=== PATIENT | male | born 1980 | race Caucasian/White ===

== ENCOUNTER 2019-02-22 15:39 | Inpatient (IN) | payer MEDICAID ==
[~2019-02-22] VITALS: Ht 172.7 cm; Wt 59.0 kg
--- NOTE | 2019-02-22 15:50 | NUR ---
PT UP SELF WITH STEADY GAIT TO RR.
[2019-02-22] MEDS ORDERED: SODIUM CHLORIDE 0.9% 1,000 ML IV ONE (15:59)
--- NOTE | 2019-02-22 15:59 | NUR ---
PT TO ED FOR RIGHT SIDED ABD PAIN X1 WEEK, WORSE AFTER DRINKING A BEER TODAY. PT REPORTS NAUSEA. DENIES V/D/FEVER. PT CONNECTED TO MONITORS. VSS. DR. VINSON TO BS FOR ASSESSMENT. AWAITING ORDERS.
[2019-02-22] MEDS ORDERED: SODIUM CHLORIDE FLUSH 10ML SYR IVF ONE (16:00)
[2019-02-22] MEDS ORDERED: SODIUM CHLORIDE 0.9% 1,000ML IVBOLUS ONE (16:00)
[2019-02-22] MEDS ORDERED: ONDANSETRON 2MG/ML, 2ML IVPush ONE (16:00)
[2019-02-22] MEDS ORDERED: HYDROmorphone 1 MG/ML, 1ML VIAL ONE (16:09)
[2019-02-22] MEDS ORDERED: ONDANSETRON 2MG/ML, 2ML ONE (16:09)
[2019-02-22] MEDS: HYDROmorphone 2 MG/ML, 1ML IVPush PRN ×4 (16:11→22:49)
--- NOTE | 2019-02-22 16:13 | NUR ---
IV ESTABLISHED AND LABS DRAWN. PT MEDICATED PER JUN. VSS. NO NEEDS EXPRESSED. PT TO XR AT THIS TIME. AWAITING RESUTLS.
[2019-02-22 16:15] LABS: BASOPHILS # (AUTO) 0.07 x10^3/uL (0-0.1); BASOPHILS % (AUTO) 1 % (0-1); EOSINOPHILS # (AUTO) 0.17 x10^3/uL (0-0.4); EOSINOPHILS % (AUTO) 2 % (1-7); LYMPHOCYTES # (AUTO) 2.48 x10^3/uL (1-3.4); LYMPHOCYTES % (AUTO) 24 % (22-44); MD NO; MEAN CORPUSCULAR HEMOGLOBIN 32.9 pg (27.5-34.5); MEAN CORPUSCULAR HGB CONC 34.6 g/dL (33.2-36.2); MEAN PLATELET VOLUME 7.3 fL (7.4-10.4); MONOCYTES % (AUTO) 13 % (2-9); NEUTROPHILS # (AUTO) 6.29 x10^3/uL (1.8-6.8); NEUTROPHILS % (AUTO) 61 % (42-75); PLATELET COUNT 360 x10^3/uL (130-400); RED BLOOD COUNT 4.42 x10^6/uL (4.38-5.82)
[2019-02-22 16:25] LABS: ALANINE AMINOTRANSFERASE 111 U/L (12-78); ALBUMIN 3.8 g/dL (3.4-5.0); ANION GAP 12 mmol/L (5-15); CALCIUM 8.9 mg/dL (8.5-10.1); CHLORIDE 104 mmol/L (98-107); CREATININE 0.86 mg/dL (0.7-1.3)
[2019-02-22 16:28] LABS: ALKALINE PHOSPHATASE 796 U/L (45-117); BILIRUBIN,TOTAL 1.6 mg/dL (0.2-1.0); TOTAL PROTEIN 7.3 g/dL (6.4-8.2)
[2019-02-22 16:44] LABS: CULTURE INDICATED? YES; MICROSCOPIC INDICATED
--- NOTE | 2019-02-22 17:06 | NUR ---
TASK RN: US AT BEDSIDE. BP/SPO2 MONITOR IN PLACE
--- NOTE | 2019-02-22 17:12 | NUR ---
FLOAT RN: US IN ROOM. WILL CONTINUE TO MONITOR WHILE PRIMARY RN IS ON BREAK.
--- NOTE | 2019-02-22 17:46 | NUR ---
ZOFIA RN: DR VINSON HAS UPDATED PATIENT. PAIENT TO BE AN ADMIT.
--- NOTE | 2019-02-22 18:05 | NUR ---
REPORT GIVEN TO AKIL PINEDA
--- NOTE | 2019-02-22 18:11 | NUR ---
PT RESTING IN ROOM. VSS. IVF BOLUS COMPLETE. MAINTENANCE IVF STARTED. NO NEEDS EXPRESSED. PLAN TO ADMIT. AWAITING ROOM ASSIGNMENT.
[2019-02-22] MEDS ORDERED: SODIUM CHLORIDE FLUSH 10ML SYR IVF PRN (18:30)
[2019-02-22] MEDS ORDERED: BISACODYL 10 MG SUPP PR PRN (19:00)
[2019-02-22] MEDS: HEPARIN 5,000 UNITS/ML, 1ML SQ SCH ×2 (19:30→19:32)
[2019-02-22] MEDS: NICOTINE 21 MG/24 HR PATCH.TD24 TD SCH (19:32)
[2019-02-22] MEDS: LACTATED RINGERS 1,000 ML IV SCH (19:32)
[2019-02-22 21:49] VITALS: BP 150/83
[2019-02-22] MEDS: ONDANSETRON 2MG/ML, 2ML IVPush PRN (22:54)
[2019-02-23] MEDS: LACTATED RINGERS 1,000 ML IV SCH ×5 (00:55→20:08)
[2019-02-23 01:07] VITALS: BP 108/66
[2019-02-23] MEDS ORDERED: PROMETHAZINE 25 MG/ML, 1ML ONE (02:33)
[2019-02-23] MEDS: PROMETHAZINE 25 MG/ML, 1ML IM PRN (02:38)
[2019-02-23] MEDS: HEPARIN 5,000 UNITS/ML, 1ML SQ SCH ×3 (02:39→19:30)
[2019-02-23] MEDS: HYDROmorphone 2 MG/ML, 1ML IVPush PRN ×7 (03:02→23:29)
[2019-02-23 04:54] LABS: BASOPHILS # (AUTO) 0.07 x10^3/uL (0-0.1); BASOPHILS % (AUTO) 1 % (0-1); EOSINOPHILS # (AUTO) 0.39 x10^3/uL (0-0.4); EOSINOPHILS % (AUTO) 6 % (1-7); LYMPHOCYTES # (AUTO) 2.87 x10^3/uL (1-3.4); LYMPHOCYTES % (AUTO) 42 % (22-44); MD NO; MEAN CORPUSCULAR HEMOGLOBIN 32.4 pg (27.5-34.5); MEAN CORPUSCULAR HGB CONC 33.8 g/dL (33.2-36.2); MEAN CORPUSCULAR VOLUME 96.1 fL (81-97); MEAN PLATELET VOLUME 7.5 fL (7.4-10.4); MONOCYTES # (AUTO) 0.81 x10^3/uL (0.2-0.8); MONOCYTES % (AUTO) 12 % (2-9); NEUTROPHILS # (AUTO) 2.69 x10^3/uL (1.8-6.8); NEUTROPHILS % (AUTO) 39 % (42-75); PLATELET COUNT 278 x10^3/uL (130-400); RED BLOOD COUNT 3.77 x10^6/uL (4.38-5.82); RED CELL DISTRIBUTION WIDTH 14.3 % (9.4-14.8)
[2019-02-23 05:04] LABS: CHLORIDE 109 mmol/L (98-107)
[2019-02-23 05:12] LABS: ALANINE AMINOTRANSFERASE 87 U/L (12-78); ALKALINE PHOSPHATASE 590 U/L (45-117); ANION GAP 4 mmol/L (5-15); CALCIUM 8.1 mg/dL (8.5-10.1); CREATININE 0.81 mg/dL (0.7-1.3); TOTAL PROTEIN 5.8 g/dL (6.4-8.2)
[2019-02-23 08:41] VITALS: BP 105/64
[2019-02-23 13:27] VITALS: BP 106/67
[2019-02-23 19:40] VITALS: BP 131/82
[2019-02-23] MEDS: NICOTINE 21 MG/24 HR PATCH.TD24 TD SCH (20:08)
[2019-02-23] MEDS: ONDANSETRON 2MG/ML, 2ML IVPush PRN (21:33)
[2019-02-24 00:49] VITALS: BP 125/78
[2019-02-24] MEDS: PROMETHAZINE 25 MG/ML, 1ML IM PRN (00:55)
[2019-02-24] MEDS: LACTATED RINGERS 1,000 ML IV SCH ×2 (00:56→05:50)
[2019-02-24] MEDS: HYDROmorphone 2 MG/ML, 1ML IVPush PRN (03:06)
[2019-02-24] MEDS: HEPARIN 5,000 UNITS/ML, 1ML SQ SCH ×3 (03:30→19:30)
[2019-02-24 05:27] LABS: BASOPHILS # (AUTO) 0.08 x10^3/uL (0-0.1); BASOPHILS % (AUTO) 1 % (0-1); EOSINOPHILS # (AUTO) 0.43 x10^3/uL (0-0.4); EOSINOPHILS % (AUTO) 7 % (1-7); LYMPHOCYTES # (AUTO) 2.67 x10^3/uL (1-3.4); LYMPHOCYTES % (AUTO) 40 % (22-44); MD NO; MEAN CORPUSCULAR HEMOGLOBIN 32.6 pg (27.5-34.5); MEAN CORPUSCULAR HGB CONC 33.8 g/dL (33.2-36.2); MEAN CORPUSCULAR VOLUME 96.4 fL (81-97); MEAN PLATELET VOLUME 7.3 fL (7.4-10.4); MONOCYTES # (AUTO) 0.83 x10^3/uL (0.2-0.8); MONOCYTES % (AUTO) 13 % (2-9); NEUTROPHILS # (AUTO) 2.64 x10^3/uL (1.8-6.8); NEUTROPHILS % (AUTO) 40 % (42-75); PLATELET COUNT 275 x10^3/uL (130-400); RED BLOOD COUNT 3.82 x10^6/uL (4.38-5.82); RED CELL DISTRIBUTION WIDTH 13.8 % (9.4-14.8)
[2019-02-24 05:38] LABS: ALBUMIN 2.9 g/dL (3.4-5.0); ANION GAP 4 mmol/L (5-15); CALCIUM 8.1 mg/dL (8.5-10.1); CHLORIDE 107 mmol/L (98-107)
[2019-02-24 05:41] LABS: ALANINE AMINOTRANSFERASE 63 U/L (12-78); ALKALINE PHOSPHATASE 463 U/L (45-117); BILIRUBIN,TOTAL 0.7 mg/dL (0.2-1.0); CREATININE 0.77 mg/dL (0.7-1.3); TOTAL PROTEIN 5.6 g/dL (6.4-8.2)
[2019-02-24] MEDS: OXYcodone/APAP 10/325MG TABLET PO PRN ×4 (07:48→21:12)
[2019-02-24 08:07] VITALS: BP 115/70
[2019-02-24] MEDS: ONDANSETRON 2MG/ML, 2ML IVPush PRN (08:18)
[2019-02-24 13:09] VITALS: BP 112/69
[2019-02-24 19:12] VITALS: BP 115/77
[2019-02-24] MEDS: NICOTINE 21 MG/24 HR PATCH.TD24 TD SCH (21:09)
[2019-02-25 01:46] VITALS: BP 125/79
[2019-02-25] MEDS: ONDANSETRON 2MG/ML, 2ML IVPush PRN (01:46)
[2019-02-25] MEDS: OXYcodone/APAP 10/325MG TABLET PO PRN ×4 (01:47→20:49)
[2019-02-25] MEDS: HEPARIN 5,000 UNITS/ML, 1ML SQ SCH ×3 (03:00→19:53)
[2019-02-25 05:16] LABS: BASOPHILS # (AUTO) 0.06 x10^3/uL (0-0.1); BASOPHILS % (AUTO) 1 % (0-1); EOSINOPHILS # (AUTO) 0.41 x10^3/uL (0-0.4); EOSINOPHILS % (AUTO) 6 % (1-7); LYMPHOCYTES # (AUTO) 2.61 x10^3/uL (1-3.4); LYMPHOCYTES % (AUTO) 36 % (22-44); MD NO; MEAN CORPUSCULAR HEMOGLOBIN 32.4 pg (27.5-34.5); MEAN CORPUSCULAR HGB CONC 33.4 g/dL (33.2-36.2); MEAN CORPUSCULAR VOLUME 96.8 fL (81-97); MEAN PLATELET VOLUME 7.4 fL (7.4-10.4); MONOCYTES % (AUTO) 12 % (2-9); NEUTROPHILS # (AUTO) 3.29 x10^3/uL (1.8-6.8); NEUTROPHILS % (AUTO) 45 % (42-75); PLATELET COUNT 260 x10^3/uL (130-400); RED BLOOD COUNT 3.86 x10^6/uL (4.38-5.82); RED CELL DISTRIBUTION WIDTH 14.1 % (9.4-14.8)
[2019-02-25 05:26] LABS: ALBUMIN 2.8 g/dL (3.4-5.0); ANION GAP 5 mmol/L (5-15); CALCIUM 7.7 mg/dL (8.5-10.1); CHLORIDE 109 mmol/L (98-107)
[2019-02-25 05:28] LABS: ALANINE AMINOTRANSFERASE 58 U/L (12-78); ALKALINE PHOSPHATASE 464 U/L (45-117); BILIRUBIN,TOTAL 0.7 mg/dL (0.2-1.0); CREATININE 0.88 mg/dL (0.7-1.3); TOTAL PROTEIN 5.7 g/dL (6.4-8.2)
[2019-02-25 06:40] VITALS: BP 132/78
[2019-02-25 13:26] VITALS: BP 125/76
[2019-02-25] MEDS ORDERED: ONDANSETRON 2MG/ML, 2ML IV PRN (14:00)
[2019-02-25] MEDS ORDERED: LABETALOL 5MG/ML, 20ML IV PRN (14:00)
[2019-02-25] MEDS ORDERED: PROMETHAZINE 25 MG/ML, 1ML IV PRN (14:00)
[2019-02-25] MEDS ORDERED: EPHEDRINE 50 MG/ML, 1ML IVPush PRN (14:00)
[2019-02-25] MEDS ORDERED: HYDROcodone/APAP 7.5-325MG/15ML UDC PO PRN (14:00)
[2019-02-25] MEDS ORDERED: hydrALAzine 20 MG/ML, 1ML IV PRN (14:00)
[2019-02-25] MEDS ORDERED: MEPERIDINE/PF 25MG/ML,1ML IVPush PRN (14:00)
[2019-02-25] MEDS ORDERED: ACETAMINOPHEN 325 MG TABLET PO PRN (14:00)
[2019-02-25] MEDS ORDERED: MIDAZOLAM 1 MG/ML, 2ML ONE (14:26)
[2019-02-25] MEDS ORDERED: FENTANYL PF 100 MCG/2ML ONE ×2 (14:26→16:11)
[2019-02-25] MEDS ORDERED: PROPOFOL 10 MG/ML, 20ML ONE (14:35)
[2019-02-25] MEDS ORDERED: SUCCINYLCHOLINE 20 MG/ML, 10ML ONE (14:35)
[2019-02-25] MEDS ORDERED: DEXAMETHASONE 4 MG/ML, 1ML ONE ×2 (14:43)
[2019-02-25] MEDS ORDERED: KETOROLAC 30 MG/1 ML ONE (14:45)
[2019-02-25] MEDS ORDERED: PIPERACILLIN/TAZO/PMX 3.375GM 50 ML ONE (14:47)
[2019-02-25] MEDS ORDERED: ONDANSETRON 2MG/ML, 2ML ONE (14:58)
[2019-02-25] MEDS ORDERED: HYDROmorphone 1 MG/ML, 1ML VIAL ONE ×3 (15:19→16:11)
[2019-02-25] MEDS: HYDROmorphone 2 MG/ML, 1ML IVPush PRN ×5 (15:25→16:25)
[2019-02-25] MEDS ORDERED: MEPERIDINE/PF 25MG/ML,1ML ONE (16:04)
[2019-02-25] MEDS: FENTANYL PF 100 MCG/2ML IV PRN ×2 (16:12→16:21)
[2019-02-25 16:58] VITALS: BP 118/68
[2019-02-25 18:35] VITALS: BP 120/82
[2019-02-25] MEDS: NICOTINE 21 MG/24 HR PATCH.TD24 TD SCH (19:53)
[2019-02-25] MEDS: PIPERACILLIN/TAZO/PMX 4.5GM 100 ML IV SCH (22:41)
[2019-02-26 01:30] VITALS: BP 118/76
[2019-02-26] MEDS: OXYcodone/APAP 10/325MG TABLET PO PRN ×5 (01:30→19:56)
[2019-02-26] MEDS: HEPARIN 5,000 UNITS/ML, 1ML SQ SCH (03:41)
[2019-02-26] MEDS: PIPERACILLIN/TAZO/PMX 4.5GM 100 ML IV SCH ×3 (06:13→22:41)
[2019-02-26 07:01] VITALS: BP 118/82
[2019-02-26] MEDS: ONDANSETRON 2MG/ML, 2ML IVPush PRN (08:24)
[2019-02-26 13:38] VITALS: BP 118/73
[2019-02-26 19:33] VITALS: BP 121/72
[2019-02-26] MEDS: NICOTINE 21 MG/24 HR PATCH.TD24 TD SCH (19:55)
[2019-02-27] MEDS: OXYcodone/APAP 10/325MG TABLET PO PRN ×4 (00:19→17:45)
[2019-02-27 01:21] VITALS: BP 114/71
[2019-02-27 05:41] LABS: BASOPHILS # (AUTO) 0.06 x10^3/uL (0-0.1); BASOPHILS % (AUTO) 1 % (0-1); EOSINOPHILS # (AUTO) 0.29 x10^3/uL (0-0.4); EOSINOPHILS % (AUTO) 3 % (1-7); LYMPHOCYTES # (AUTO) 3.06 x10^3/uL (1-3.4); LYMPHOCYTES % (AUTO) 30 % (22-44); MD NO; MEAN CORPUSCULAR HEMOGLOBIN 32.6 pg (27.5-34.5); MEAN CORPUSCULAR HGB CONC 33.5 g/dL (33.2-36.2); MEAN CORPUSCULAR VOLUME 97.4 fL (81-97); MEAN PLATELET VOLUME 7.3 fL (7.4-10.4); MONOCYTES # (AUTO) 0.89 x10^3/uL (0.2-0.8); MONOCYTES % (AUTO) 9 % (2-9); NEUTROPHILS # (AUTO) 5.78 x10^3/uL (1.8-6.8); NEUTROPHILS % (AUTO) 57 % (42-75); PLATELET COUNT 274 x10^3/uL (130-400); RED BLOOD COUNT 3.89 x10^6/uL (4.38-5.82); RED CELL DISTRIBUTION WIDTH 13.9 % (9.4-14.8)
[2019-02-27 05:54] LABS: ALBUMIN 2.8 g/dL (3.4-5.0); ANION GAP 4 mmol/L (5-15); CALCIUM 8.1 mg/dL (8.5-10.1); CHLORIDE 108 mmol/L (98-107)
[2019-02-27 06:00] LABS: ALANINE AMINOTRANSFERASE 35 U/L (12-78); ALKALINE PHOSPHATASE 309 U/L (45-117); BILIRUBIN,TOTAL 0.4 mg/dL (0.2-1.0); CREATININE 0.97 mg/dL (0.7-1.3); TOTAL PROTEIN 5.7 g/dL (6.4-8.2)
[2019-02-27] MEDS: PIPERACILLIN/TAZO/PMX 4.5GM 100 ML IV SCH ×2 (06:25→15:17)
[2019-02-27 07:55] VITALS: BP 124/74
[2019-02-27] MEDS: ONDANSETRON 2MG/ML, 2ML IVPush PRN (12:59)
[2019-02-27 13:05] VITALS: BP 126/85
[2019-02-27] MEDS: metroNIDAZOLE 500 MG TABLET PO SCH ×2 (17:44→20:27)
[2019-02-27] MEDS: PROMETHAZINE 25 MG/ML, 1ML IM PRN (17:44)
[2019-02-27] MEDS: PANTOPRAZOLE 20MG TABLET PO SCH (17:44)
[2019-02-27] MEDS: MAALOX/HYOSCYAMINE/LIDOCAINE 45 ML BTL PO PRN (17:45)
[2019-02-27 19:31] VITALS: BP 116/75
[2019-02-27] MEDS: NICOTINE 21 MG/24 HR PATCH.TD24 TD SCH (20:26)
[2019-02-27] MEDS: CEFDINIR 300 MG CAPSULE PO SCH (20:27)
[2019-02-28 00:19] VITALS: BP 111/69
[2019-02-28] MEDS: OXYcodone/APAP 10/325MG TABLET PO PRN ×2 (03:42→10:54)
[2019-02-28] MEDS: MAALOX/HYOSCYAMINE/LIDOCAINE 45 ML BTL PO PRN (03:52)
[2019-02-28] MEDS: PANTOPRAZOLE 20MG TABLET PO SCH ×2 (05:49→16:31)
[2019-02-28 06:05] LABS: BASOPHILS # (AUTO) 0.03 x10^3/uL (0-0.1); BASOPHILS % (AUTO) 0 % (0-1); EOSINOPHILS # (AUTO) 0.37 x10^3/uL (0-0.4); EOSINOPHILS % (AUTO) 4 % (1-7); LYMPHOCYTES # (AUTO) 2.01 x10^3/uL (1-3.4); LYMPHOCYTES % (AUTO) 20 % (22-44); MD NO; MEAN CORPUSCULAR HEMOGLOBIN 32.4 pg (27.5-34.5); MEAN CORPUSCULAR HGB CONC 33.3 g/dL (33.2-36.2); MEAN CORPUSCULAR VOLUME 97.4 fL (81-97); MEAN PLATELET VOLUME 7.7 fL (7.4-10.4); MONOCYTES # (AUTO) 0.98 x10^3/uL (0.2-0.8); MONOCYTES % (AUTO) 10 % (2-9); NEUTROPHILS # (AUTO) 6.72 x10^3/uL (1.8-6.8); NEUTROPHILS % (AUTO) 67 % (42-75); PLATELET COUNT 306 x10^3/uL (130-400); RED BLOOD COUNT 3.98 x10^6/uL (4.38-5.82); RED CELL DISTRIBUTION WIDTH 13.9 % (9.4-14.8)
[2019-02-28 06:08] LABS: CHLORIDE 108 mmol/L (98-107)
[2019-02-28 06:16] LABS: ALANINE AMINOTRANSFERASE 31 U/L (12-78); ALBUMIN 2.9 g/dL (3.4-5.0); ALKALINE PHOSPHATASE 289 U/L (45-117); ANION GAP 7 mmol/L (5-15); BILIRUBIN,TOTAL 0.4 mg/dL (0.2-1.0); CALCIUM 8.1 mg/dL (8.5-10.1); TOTAL PROTEIN 6.4 g/dL (6.4-8.2)
[2019-02-28 06:52] VITALS: BP 114/69
[2019-02-28] MEDS: CEFDINIR 300 MG CAPSULE PO SCH (08:37)
[2019-02-28] MEDS: metroNIDAZOLE 500 MG TABLET PO SCH ×2 (08:37→16:31)
[2019-02-28 13:20] VITALS: BP 107/71
[2019-02-28] MEDS: ONDANSETRON 2MG/ML, 2ML IVPush PRN (13:38)
[2019-02-28] MEDS ORDERED: ONDA4TAB13 SL (14:55)
[2019-02-28] MEDS ORDERED: TRAM50TA2 PO (14:55)
[2019-02-28] MEDS ORDERED: NICO-487 TD (14:55)
[2019-02-28] MEDS ORDERED: PANT20TA3 PO (14:55)
[2019-02-28] MEDS ORDERED: CEFD300C37 PO (14:55)
[2019-02-28] MEDS ORDERED: METR500T PO (14:55)
[2019-02-28] MEDS ORDERED: Maalox/Hyoscyamine/Lidocaine PO (14:56)
== END 2019-02-28 17:00 | disposition home or self-care (01) | DRG 439 ==
LOC: ED 17:59 → EDIP 18:01 → 3N 19:09 → DCLOUNGE 02-28 16:36
PROVIDERS: ADMIT Internal Medicine; ATTEND Internal Medicine
PROC: 0DB68ZX Excision of Stomach, Via Natural or Artificial Opening Endoscopic, Diagnostic (ICD-10-PCS; 2019-02-25)
PROC: 0F9G8ZZ Drainage of Pancreas, Via Natural or Artificial Opening Endoscopic (ICD-10-PCS; 2019-02-25)
PROC: BF47ZZZ Ultrasonography of Pancreas (ICD-10-PCS; 2019-02-25)
PROC: 0D9680Z Drainage of Stomach with Drainage Device, Via Natural or Artificial Opening Endoscopic (ICD-10-PCS; principal; 2019-02-25 14:30)
DX: K85.20 Alcohol induced acute pancreatitis without necrosis or infection (principal); K86.3 Pseudocyst of pancreas; F10.10 Alcohol abuse, uncomplicated; F32.9 Major depressive disorder, single episode, unspecified; F41.9 Anxiety disorder, unspecified; G89.29 Other chronic pain; K70.10 Alcoholic hepatitis without ascites; K83.8 Other specified diseases of biliary tract; K86.0 Alcohol-induced chronic pancreatitis; Z72.0 Tobacco use
CPT/HCPCS: 36415; 74021; 74022; 74181; 76700; 80053; 80074; 81001; 83690; 83735; 84100; 85025; 87086; 88305; 96361; 96374; G0378; J1100; J1170; J1644; J1885; J2250; J2405; J2543; J2550; J2704; J3010; C1874; J0330; J2175; J7030; J7120

== ENCOUNTER 2019-03-29 07:48 | Inpatient (IN) | payer MEDICAID ==
[~2019-03-29] VITALS: Ht 175.3 cm; Wt 59.2 kg
[~2019-03-29 07:48] MED LIST: CEFD300C37 PO; METR500T PO; Maalox/Hyoscyamine/Lidocaine PO; NICO-487 TD; ONDA4TAB13 SL; PANT20TA3 PO; TRAM50TA2 PO
[2019-03-29] MEDS ORDERED: HYDROmorphone 2 MG/ML, 1ML ONE ×2 (08:23→10:10)
[2019-03-29] MEDS: HYDROmorphone 2 MG/ML, 1ML IVPush PRN ×2 (08:24→10:13)
[2019-03-29 08:39] LABS: BASOPHILS # (AUTO) 0.09 x10^3/uL (0-0.1); BASOPHILS % (AUTO) 1 % (0-1); EOSINOPHILS % (AUTO) 3 % (1-7); LYMPHOCYTES # (AUTO) 2.12 x10^3/uL (1-3.4); LYMPHOCYTES % (AUTO) 23 % (22-44); MD NO; MEAN CORPUSCULAR HGB CONC 34.7 g/dL (33.2-36.2); MEAN PLATELET VOLUME 6.6 fL (7.4-10.4); MONOCYTES # (AUTO) 0.77 x10^3/uL (0.2-0.8); MONOCYTES % (AUTO) 8 % (2-9); NEUTROPHILS # (AUTO) 5.97 x10^3/uL (1.8-6.8); NEUTROPHILS % (AUTO) 65 % (42-75); PLATELET COUNT 327 x10^3/uL (130-400); RED BLOOD COUNT 4.76 x10^6/uL (4.38-5.82); RED CELL DISTRIBUTION WIDTH 14.3 % (9.4-14.8)
[2019-03-29 08:46] LABS: ALBUMIN 3.7 g/dL (3.4-5.0); ANION GAP 11 mmol/L (5-15); CALCIUM 8.7 mg/dL (8.5-10.1); CHLORIDE 109 mmol/L (98-107); CREATININE 0.87 mg/dL (0.7-1.3)
[2019-03-29 08:50] LABS: ALANINE AMINOTRANSFERASE 23 U/L (12-78); ALKALINE PHOSPHATASE 88 U/L (45-117); BILIRUBIN,TOTAL 0.5 mg/dL (0.2-1.0); TOTAL PROTEIN 7.7 g/dL (6.4-8.2)
--- NOTE | 2019-03-29 09:24 | NUR ---
pt returned from CT in NAD awaiting CT read & dispo. MELA
[2019-03-29] MEDS ORDERED: OMNIPAQUE 350 MG/ML, 100ML BOTTLE ONE (09:31)
--- NOTE | 2019-03-29 09:52 | NUR ---
Pt to be admitted
--- NOTE | 2019-03-29 10:22 | NUR ---
Hospital bed ordered for pt
[2019-03-29] MEDS: SODIUM CHLORIDE 0.9% 1,000 ML IV SCH ×2 (10:56→19:36)
--- NOTE | 2019-03-29 10:59 | NUR ---
Pt in bed, NAD, awaiting medical room to be cleaned.
[2019-03-29] MEDS ORDERED: LORazepam 2 MG/ML, 1ML IVPush PRN (11:00)
[2019-03-29] MEDS ORDERED: MAGNESIUM SULFATE PMX 2GM/50ML 50 ML IV ONE (11:00)
[2019-03-29] MEDS ORDERED: HALOPERIDOL 5 MG/ML IM PRN (11:30)
[2019-03-29] MEDS ORDERED: ONDANSETRON 2MG/ML, 2ML ONE (11:53)
[2019-03-29] MEDS ORDERED: MAGNESIUM SULFATE PMX 2GM/50ML 50 ML ONE (11:54)
[2019-03-29] MEDS ORDERED: PANTOPRAZOLE 40 MG IV ONE (11:54)
[2019-03-29] MEDS ORDERED: MORPHINE SULFATE 4 MG/ML, 1ML ONE (11:54)
[2019-03-29] MEDS: ONDANSETRON 2MG/ML, 2ML IVPush PRN (12:06)
[2019-03-29] MEDS: PANTOPRAZOLE 40 MG IV IVPush SCH ×2 (12:07→21:17)
[2019-03-29] MEDS: morphine SULFATE 10 MG/ML, 1ML IVPush PRN ×4 (12:07→23:18)
--- NOTE | 2019-03-29 12:16 | NUR ---
Pt moved to hospital bed, given mouth swabs.
[2019-03-29] MEDS ORDERED: NICOTINE 21 MG/24 HR PATCH.TD24 ONE (12:37)
[2019-03-29] MEDS: NICOTINE 21 MG/24 HR PATCH.TD24 TD SCH (12:41)
[2019-03-29] MEDS ORDERED: LORazepam 2 MG/ML, 1ML ONE (12:48)
[2019-03-29 13:23] VITALS: BP 134/74
[2019-03-29 18:41] VITALS: BP 132/69
[2019-03-30 01:13] VITALS: BP 116/64
[2019-03-30] MEDS: SODIUM CHLORIDE 0.9% 1,000 ML IV SCH ×3 (03:23→18:56)
[2019-03-30] MEDS: morphine SULFATE 10 MG/ML, 1ML IVPush PRN ×2 (03:30→08:19)
[2019-03-30 05:14] LABS: CALCIUM 8.1 mg/dL (8.5-10.1); CHLORIDE 106 mmol/L (98-107)
[2019-03-30 05:18] LABS: ANION GAP 10 mmol/L (5-15); CREATININE 0.69 mg/dL (0.7-1.3)
[2019-03-30 05:20] LABS: BASOPHILS # (AUTO) 0.04 x10^3/uL (0-0.1); BASOPHILS % (AUTO) 1 % (0-1); EOSINOPHILS # (AUTO) 0.42 x10^3/uL (0-0.4); EOSINOPHILS % (AUTO) 7 % (1-7); LYMPHOCYTES # (AUTO) 1.68 x10^3/uL (1-3.4); LYMPHOCYTES % (AUTO) 28 % (22-44); MD NO; MEAN CORPUSCULAR HEMOGLOBIN 31.7 pg (27.5-34.5); MEAN CORPUSCULAR HGB CONC 34.1 g/dL (33.2-36.2); MEAN CORPUSCULAR VOLUME 92.9 fL (81-97); MONOCYTES # (AUTO) 0.61 x10^3/uL (0.2-0.8); MONOCYTES % (AUTO) 10 % (2-9); NEUTROPHILS # (AUTO) 3.31 x10^3/uL (1.8-6.8); NEUTROPHILS % (AUTO) 55 % (42-75); PLATELET COUNT 255 x10^3/uL (130-400); RED BLOOD COUNT 4.08 x10^6/uL (4.38-5.82); RED CELL DISTRIBUTION WIDTH 14.4 % (9.4-14.8)
[2019-03-30 06:16] VITALS: BP 110/70
[2019-03-30] MEDS: PANTOPRAZOLE 40 MG IV IVPush SCH ×2 (08:19→20:48)
[2019-03-30] MEDS: NICOTINE 21 MG/24 HR PATCH.TD24 TD SCH (08:20)
[2019-03-30] MEDS ORDERED: DIPHENHYDRAMINE 50 MG/ML, 1ML IVPush ONE (11:00)
[2019-03-30] MEDS ORDERED: LORazepam 0.5MG TABLET PO PRN (11:00)
[2019-03-30] MEDS ORDERED: ONDANSETRON ODT 4 MG PO PRN (11:00)
[2019-03-30] MEDS ORDERED: LORazepam 2 MG/ML, 1ML IV PRN (11:00)
[2019-03-30] MEDS ORDERED: LORazepam 1MG TABLET PO PRN (11:00)
[2019-03-30] MEDS ORDERED: DIPHENHYDRAMINE 25 MG CAPSULE PO PRN (11:00)
[2019-03-30] MEDS: HYDROcodone/APAP 5/325 TABLET PO PRN ×3 (11:36→22:22)
[2019-03-30 12:06] LABS: BILIRUBIN, DIRECT 0.2 mg/dL (0.1-0.2)
[2019-03-30 12:07] LABS: BILIRUBIN,INDIRECT 0.7 mg/dL (0.0-2.0); BILIRUBIN,TOTAL 0.9 mg/dL (0.2-1.0); TOTAL PROTEIN 6.5 g/dL (6.4-8.2)
[2019-03-30 13:05] VITALS: BP 109/65
[2019-03-30] MEDS: MAGNESIUM SULFATE 1 GM, FOLIC ACID 1 MG, THIAMINE 200 MG, MVI ADULT 10 ML in D5%-0.9% N... IV SCH (15:17)
[2019-03-30] MEDS: LORazepam 2 MG/ML, 1ML IV PRN ×2 (16:52→23:55)
[2019-03-30 19:47] VITALS: BP 110/66
[2019-03-31] MEDS: SODIUM CHLORIDE 0.9% 1,000 ML IV SCH ×3 (01:35→18:56)
[2019-03-31 01:36] VITALS: BP 125/79
[2019-03-31] MEDS: HYDROcodone/APAP 5/325 TABLET PO PRN ×3 (05:14→21:25)
[2019-03-31 07:34] VITALS: BP 122/71
[2019-03-31] MEDS: PANTOPRAZOLE 40 MG IV IVPush SCH ×2 (09:00→21:03)
[2019-03-31] MEDS: NICOTINE 21 MG/24 HR PATCH.TD24 TD SCH ×2 (11:00→21:25)
[2019-03-31 12:18] VITALS: BP 128/67
[2019-03-31] MEDS: ONDANSETRON 2MG/ML, 2ML IVPush PRN ×2 (13:18→21:03)
[2019-03-31] MEDS: LORazepam 2 MG/ML, 1ML IV PRN ×2 (13:19→22:24)
[2019-03-31] MEDS: MAGNESIUM SULFATE 1 GM, FOLIC ACID 1 MG, THIAMINE 200 MG, MVI ADULT 10 ML in D5%-0.9% N... IV SCH (18:35)
[2019-03-31 18:49] VITALS: BP 129/80
[2019-04-01 00:54] VITALS: BP 112/68
[2019-04-01] MEDS: SODIUM CHLORIDE 0.9% 1,000 ML IV SCH ×2 (02:56→05:07)
[2019-04-01] MEDS: HYDROcodone/APAP 5/325 TABLET PO PRN ×2 (03:31→08:50)
[2019-04-01 07:07] VITALS: BP 122/84
[2019-04-01] MEDS: ONDANSETRON 2MG/ML, 2ML IVPush PRN (08:49)
[2019-04-01] MEDS: PANTOPRAZOLE 40 MG IV IVPush SCH ×2 (08:50→20:02)
[2019-04-01] MEDS ORDERED: SODIUM CHLORIDE 0.9% 1,000 ML IV SCH (10:56)
[2019-04-01] MEDS ORDERED: METOCLOPRAMIDE 5 MG/ML, 2ML IVPush PRN (11:00)
[2019-04-01] MEDS: SIMETHICONE 80 MG CHEW TAB PO SCH ×3 (11:27→21:00)
[2019-04-01] MEDS: SENNA/DOCUSATE TABLET PO SCH (11:27)
[2019-04-01 11:29] LABS: BASOPHILS % (AUTO) 1 % (0-1); EOSINOPHILS # (AUTO) 0.36 x10^3/uL (0-0.4); EOSINOPHILS % (AUTO) 5 % (1-7); LYMPHOCYTES # (AUTO) 1.92 x10^3/uL (1-3.4); LYMPHOCYTES % (AUTO) 25 % (22-44); MD NO; MEAN CORPUSCULAR HEMOGLOBIN 31.7 pg (27.5-34.5); MEAN CORPUSCULAR HGB CONC 33.3 g/dL (33.2-36.2); MONOCYTES # (AUTO) 0.62 x10^3/uL (0.2-0.8); MONOCYTES % (AUTO) 8 % (2-9); NEUTROPHILS # (AUTO) 4.67 x10^3/uL (1.8-6.8); NEUTROPHILS % (AUTO) 61 % (42-75); PLATELET COUNT 312 x10^3/uL (130-400); RED BLOOD COUNT 4.51 x10^6/uL (4.38-5.82); RED CELL DISTRIBUTION WIDTH 14.5 % (9.4-14.8)
[2019-04-01 11:40] LABS: ALANINE AMINOTRANSFERASE 25 U/L (12-78); ALBUMIN 3.4 g/dL (3.4-5.0); ANION GAP 8 mmol/L (5-15); CALCIUM 8.7 mg/dL (8.5-10.1); CHLORIDE 106 mmol/L (98-107); CREATININE 0.83 mg/dL (0.7-1.3)
[2019-04-01 11:42] LABS: ALKALINE PHOSPHATASE 90 U/L (45-117); BILIRUBIN,TOTAL 0.5 mg/dL (0.2-1.0); TOTAL PROTEIN 7.2 g/dL (6.4-8.2)
[2019-04-01 12:51] LABS: HEMOGLOBIN A1C 5.7 % (4.2-6.3)
[2019-04-01 13:44] VITALS: BP 145/88
[2019-04-01] MEDS ORDERED: POTASSIUM PHOSPHATE 22 MEQ in SODIUM CHLORIDE 0.9% 250 ML IV ONE (14:30)
[2019-04-01] MEDS: HYDROmorphone 2 MG/ML, 1ML IVPush PRN ×2 (14:38→20:04)
[2019-04-01] MEDS: MAGNESIUM SULFATE 1 GM, FOLIC ACID 1 MG, THIAMINE 200 MG, MVI ADULT 10 ML in D5%-0.9% N... IV SCH (18:32)
[2019-04-01 19:13] VITALS: BP 109/69
[2019-04-01] MEDS: NICOTINE 21 MG/24 HR PATCH.TD24 TD SCH (20:02)
[2019-04-02] MEDS: HYDROmorphone 2 MG/ML, 1ML IVPush PRN ×4 (00:35→20:29)
[2019-04-02] MEDS: LORazepam 2 MG/ML, 1ML IV PRN (00:41)
[2019-04-02 00:58] VITALS: BP 110/54
[2019-04-02] MEDS: SODIUM CHLORIDE 0.9% 1,000 ML IV SCH ×3 (04:40→20:00)
[2019-04-02 05:30] LABS: ALANINE AMINOTRANSFERASE 22 U/L (12-78); ALBUMIN 3.5 g/dL (3.4-5.0); ANION GAP 7 mmol/L (5-15); CALCIUM 8.5 mg/dL (8.5-10.1); CHLORIDE 105 mmol/L (98-107)
[2019-04-02 05:33] LABS: ALKALINE PHOSPHATASE 88 U/L (45-117); BILIRUBIN,TOTAL 0.4 mg/dL (0.2-1.0); CREATININE 0.79 mg/dL (0.7-1.3); TOTAL PROTEIN 7.3 g/dL (6.4-8.2)
[2019-04-02] MEDS: SIMETHICONE 80 MG CHEW TAB PO SCH ×4 (06:00→20:29)
[2019-04-02 07:36] VITALS: BP 115/75
[2019-04-02] MEDS: SENNA/DOCUSATE TABLET PO SCH (07:59)
[2019-04-02] MEDS: PANTOPRAZOLE 40 MG IV IVPush SCH ×2 (07:59→20:28)
[2019-04-02] MEDS ORDERED: SODIUM CHLORIDE 0.9% 1,000 ML IV SCH (10:56)
[2019-04-02 13:06] VITALS: BP 115/74
[2019-04-02 19:34] VITALS: BP 127/72
[2019-04-02] MEDS: NICOTINE 21 MG/24 HR PATCH.TD24 TD SCH (23:13)
[2019-04-03 00:09] VITALS: BP 120/68
[2019-04-03] MEDS: LORazepam 2 MG/ML, 1ML IV PRN (00:24)
[2019-04-03] MEDS: HYDROmorphone 2 MG/ML, 1ML IVPush PRN ×3 (01:07→20:11)
[2019-04-03] MEDS: SODIUM CHLORIDE 0.9% 1,000 ML IV SCH ×3 (04:00→22:36)
[2019-04-03] MEDS: SIMETHICONE 80 MG CHEW TAB PO SCH ×4 (05:17→22:36)
[2019-04-03 07:21] VITALS: BP 124/81
[2019-04-03] MEDS: SENNA/DOCUSATE TABLET PO SCH (09:19)
[2019-04-03] MEDS: PANTOPRAZOLE 40 MG IV IVPush SCH ×2 (10:03→20:10)
[2019-04-03 12:35] VITALS: BP 116/72
[2019-04-03 19:54] VITALS: BP 120/74
[2019-04-03] MEDS: NICOTINE 21 MG/24 HR PATCH.TD24 TD SCH (22:36)
[2019-04-04 01:15] VITALS: BP 124/76
[2019-04-04] MEDS: HYDROmorphone 2 MG/ML, 1ML IVPush PRN (01:33)
[2019-04-04 05:44] LABS: BASOPHILS # (AUTO) 0.05 x10^3/uL (0-0.1); BASOPHILS % (AUTO) 1 % (0-1); EOSINOPHILS # (AUTO) 0.57 x10^3/uL (0-0.4); EOSINOPHILS % (AUTO) 6 % (1-7); LYMPHOCYTES # (AUTO) 2.74 x10^3/uL (1-3.4); LYMPHOCYTES % (AUTO) 30 % (22-44); MD NO; MEAN CORPUSCULAR HEMOGLOBIN 31.6 pg (27.5-34.5); MEAN CORPUSCULAR VOLUME 95.5 fL (81-97); MONOCYTES # (AUTO) 0.66 x10^3/uL (0.2-0.8); MONOCYTES % (AUTO) 7 % (2-9); NEUTROPHILS # (AUTO) 5.04 x10^3/uL (1.8-6.8); NEUTROPHILS % (AUTO) 56 % (42-75); PLATELET COUNT 323 x10^3/uL (130-400); RED BLOOD COUNT 4.39 x10^6/uL (4.38-5.82); RED CELL DISTRIBUTION WIDTH 14.6 % (9.4-14.8)
[2019-04-04 05:56] LABS: ALBUMIN 3.1 g/dL (3.4-5.0); ANION GAP 4 mmol/L (5-15); CALCIUM 8.8 mg/dL (8.5-10.1); CHLORIDE 110 mmol/L (98-107)
[2019-04-04 06:00] LABS: ALANINE AMINOTRANSFERASE 17 U/L (12-78); ALKALINE PHOSPHATASE 78 U/L (45-117); BILIRUBIN,TOTAL 0.4 mg/dL (0.2-1.0); TOTAL PROTEIN 6.6 g/dL (6.4-8.2)
[2019-04-04] MEDS: SODIUM CHLORIDE 0.9% 1,000 ML IV SCH ×2 (06:11→20:04)
[2019-04-04] MEDS: SIMETHICONE 80 MG CHEW TAB PO SCH ×4 (06:11→20:04)
[2019-04-04 07:30] VITALS: BP 108/68
[2019-04-04] MEDS: PANTOPRAZOLE 40 MG IV IVPush SCH (08:20)
[2019-04-04] MEDS: SENNA/DOCUSATE TABLET PO SCH (08:20)
[2019-04-04 12:45] VITALS: BP 118/78
[2019-04-04] MEDS: NICOTINE 21 MG/24 HR PATCH.TD24 TD SCH (17:43)
[2019-04-04 19:25] VITALS: BP 116/77
[2019-04-04] MEDS: ONDANSETRON 2MG/ML, 2ML IVPush PRN (19:47)
[2019-04-04] MEDS: PANTOPROZOLE 40MG TABLET PO SCH (20:04)
[2019-04-04] MEDS: HYDROcodone/APAP 5/325 TABLET PO PRN (22:27)
[2019-04-05 00:52] VITALS: BP 114/74
[2019-04-05] MEDS: SODIUM CHLORIDE 0.9% 1,000 ML IV SCH (05:03)
[2019-04-05] MEDS: SIMETHICONE 80 MG CHEW TAB PO SCH ×2 (05:03→11:29)
[2019-04-05 07:05] VITALS: BP 120/74
[2019-04-05] MEDS: SENNA/DOCUSATE TABLET PO SCH (11:29)
[2019-04-05] MEDS: PANTOPROZOLE 40MG TABLET PO SCH (11:29)
== END 2019-04-05 11:48 | disposition home or self-care (01) | DRG 439 ==
LOC: ED 09:42 → EDIP 09:43 → UNDOADMIN 10:47 → 3N 13:00
PROVIDERS: ADMIT Internal Medicine; ATTEND Internal Medicine
DX: K85.20 Alcohol induced acute pancreatitis without necrosis or infection (principal); E87.2 Acidosis; F10.239 Alcohol dependence with withdrawal, unspecified; F10.288 Alcohol dependence with other alcohol-induced disorder; K86.3 Pseudocyst of pancreas; B86 Scabies; E83.39 Other disorders of phosphorus metabolism; F10.229 Alcohol dependence with intoxication, unspecified; K29.50 Unspecified chronic gastritis without bleeding; K70.10 Alcoholic hepatitis without ascites; K76.0 Fatty (change of) liver, not elsewhere classified; K86.0 Alcohol-induced chronic pancreatitis; Z80.3 Family history of malignant neoplasm of breast; Z87.891 Personal history of nicotine dependence; Y90.9 Presence of alcohol in blood, level not specified
CPT/HCPCS: 36415; 74021; 96374; 99285; J7042; 74177; 80048; 80053; 80076; 80307; 83036; 83690; 83735; 84100; 85025; 93005; G0378; J1170; J2405; J3411; J3475; Q0162; Q9967; C9113; J1200; J2060; J2270; J2765; J7030; J7050; Q0163

== ENCOUNTER 2019-04-12 21:21 | Emergency (ER) | payer MEDICAID ==
[~2019-04-12] VITALS: Ht 175.3 cm; Wt 54.0 kg
[2019-04-12 21:57] LABS: MICROSCOPIC NOT IND
[2019-04-12] MEDS ORDERED: FAMOTIDINE 20 MG/2 ML IVPush ONE (22:00)
[2019-04-12] MEDS ORDERED: SODIUM CHLORIDE FLUSH 10ML SYR IVF ONE (22:00)
[2019-04-12] MEDS ORDERED: PROCHLORPERAZINE 5 MG/ML, 2ML IVPush ONE (22:00)
[2019-04-12] MEDS ORDERED: PROCHLORPERAZINE 5 MG/ML, 2ML ONE (22:00)
[2019-04-12] MEDS ORDERED: SODIUM CHLORIDE 0.9% 1,000ML IVBOLUS ONE (22:00)
[2019-04-12] MEDS ORDERED: FAMOTIDINE 20 MG/2 ML ONE (22:01)
[2019-04-12 22:09] LABS: CULTURE INDICATED? NO
[2019-04-12 22:24] LABS: BASOPHILS # (AUTO) 0.06 x10^3/uL (0-0.1); BASOPHILS % (AUTO) 1 % (0-1); EOSINOPHILS # (AUTO) 0.11 x10^3/uL (0-0.4); EOSINOPHILS % (AUTO) 1 % (1-7); LYMPHOCYTES % (AUTO) 30 % (22-44); MD NO; MEAN CORPUSCULAR HEMOGLOBIN 31.8 pg (27.5-34.5); MEAN CORPUSCULAR HGB CONC 33.9 g/dL (33.2-36.2); MEAN CORPUSCULAR VOLUME 93.8 fL (81-97); MEAN PLATELET VOLUME 6.4 fL (7.4-10.4); MONOCYTES # (AUTO) 0.64 x10^3/uL (0.2-0.8); MONOCYTES % (AUTO) 6 % (2-9); NEUTROPHILS # (AUTO) 7.04 x10^3/uL (1.8-6.8); NEUTROPHILS % (AUTO) 63 % (42-75); PLATELET COUNT 677 x10^3/uL (130-400); RED BLOOD COUNT 4.84 x10^6/uL (4.38-5.82); RED CELL DISTRIBUTION WIDTH 14.7 % (9.4-14.8)
[2019-04-12 22:37] LABS: ALANINE AMINOTRANSFERASE 20 U/L (12-78); ALBUMIN 3.6 g/dL (3.4-5.0); ANION GAP 8 mmol/L (5-15); CALCIUM 8.3 mg/dL (8.5-10.1); CHLORIDE 109 mmol/L (98-107); CREATININE 0.79 mg/dL (0.7-1.3)
[2019-04-12 22:39] LABS: ALKALINE PHOSPHATASE 82 U/L (45-117); BILIRUBIN,TOTAL 0.2 mg/dL (0.2-1.0); TOTAL PROTEIN 7.6 g/dL (6.4-8.2)
[2019-04-12 22:48] VITALS: BP 117/73
--- NOTE | 2019-04-12 23:04 | NUR ---
BIB [facility], ABD RUQ X 1 WEEK. HX PANCREATITIS. HAD A COUPLE OF DRINKS TONIGHT AND PAIN GOT SO BAD CALLED AMBULANCE. EXTREME PAIN WITH ABD PALPATION IN ALL QUADRANTS. 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 +N/V
[2019-04-13] MEDS ORDERED: SODIUM CHLORIDE 0.9% 1,000ML IVBOLUS ONE
== END 2019-04-13 00:51 | disposition home or self-care (01) ==
LOC: ED 23:03
DX: R10.13 Epigastric pain (principal); R11.2 Nausea with vomiting, unspecified; E86.0 Dehydration; F12.10 Cannabis abuse, uncomplicated; F17.200 Nicotine dependence, unspecified, uncomplicated; Z72.89 Other problems related to lifestyle
CPT/HCPCS: 36415; 80053; 80307; 81003; 83690; 83735; 85025; 96361; 96374; 96375; 99283; J0780; J3490; J7030

== ENCOUNTER 2019-04-14 12:27 | Emergency (ER) | payer MEDICAID ==
[~2019-04-14] VITALS: Ht 172.7 cm; Wt 57.0 kg
[2019-04-14 12:30] VITALS: BP 130/77
--- NOTE | 2019-04-14 14:17 | NUR ---
PURCHASING OFFICER: CALLED FOR ROOM, NO ANSWER
--- NOTE | 2019-04-14 14:18 | NUR ---
TITLE SUPERVISOR: PT SIGNED REQUEST FOR DISCHARGE FORM.
== END 2019-04-14 14:20 | disposition left against medical advice (07) ==
LOC: ED 14:02
DX: R10.9 Unspecified abdominal pain (principal); R11.2 Nausea with vomiting, unspecified; R19.7 Diarrhea, unspecified; Z53.21 Procedure and treatment not carried out due to patient leaving prior to being seen by health care provider

== ENCOUNTER 2019-04-14 19:13 | Inpatient (IN) | payer MEDICAID ==
[~2019-04-14] VITALS: Ht 175.3 cm; Wt 60.2 kg
[2019-04-14] MEDS ORDERED: ONDANSETRON 2MG/ML, 2ML IVPush ONE (20:00)
[2019-04-14] MEDS ORDERED: SODIUM CHLORIDE 0.9% 1,000ML IVBOLUS ONE ×2 (20:00→20:30)
[2019-04-14] MEDS ORDERED: MORPHINE SULFATE 4 MG/ML, 1ML IVPush PRN ×2 (20:00→20:30)
[2019-04-14] MEDS ORDERED: ONDANSETRON 2MG/ML, 2ML ONE (20:14)
[2019-04-14] MEDS ORDERED: MORPHINE SULFATE 4 MG/ML, 1ML ONE (20:15)
--- NOTE | 2019-04-14 20:21 | NUR ---
PT MEDICATED PER MAR FOR PAIN. PT RESTING COMFORTABLY IN [facility] AT THIS TIME WITH CALL LIGHT WITHIN REACH.
[2019-04-14] MEDS ORDERED: SODIUM CHLORIDE 0.9% 1,000 ML IV ONE (20:25)
[2019-04-14 20:26] LABS: BASOPHILS # (AUTO) 0.09 x10^3/uL (0-0.1); BASOPHILS % (AUTO) 1 % (0-1); EOSINOPHILS # (AUTO) 0.21 x10^3/uL (0-0.4); EOSINOPHILS % (AUTO) 2 % (1-7); LYMPHOCYTES # (AUTO) 2.63 x10^3/uL (1-3.4); LYMPHOCYTES % (AUTO) 28 % (22-44); MD NO; MEAN CORPUSCULAR HEMOGLOBIN 31.2 pg (27.5-34.5); MEAN CORPUSCULAR HGB CONC 33.2 g/dL (33.2-36.2); MEAN CORPUSCULAR VOLUME 94.1 fL (81-97); MEAN PLATELET VOLUME 6.6 fL (7.4-10.4); MONOCYTES # (AUTO) 0.61 x10^3/uL (0.2-0.8); MONOCYTES % (AUTO) 7 % (2-9); NEUTROPHILS # (AUTO) 5.79 x10^3/uL (1.8-6.8); NEUTROPHILS % (AUTO) 62 % (42-75); PLATELET COUNT 519 x10^3/uL (130-400); RED BLOOD COUNT 4.02 x10^6/uL (4.38-5.82); RED CELL DISTRIBUTION WIDTH 14.4 % (9.4-14.8)
[2019-04-14 20:27] LABS: ALANINE AMINOTRANSFERASE 20 U/L (12-78); ANION GAP 9 mmol/L (5-15); CALCIUM 8.1 mg/dL (8.5-10.1); CHLORIDE 110 mmol/L (98-107); CREATININE 0.62 mg/dL (0.7-1.3)
[2019-04-14 20:29] LABS: ALKALINE PHOSPHATASE 74 U/L (45-117); BILIRUBIN,TOTAL 0.7 mg/dL (0.2-1.0); TOTAL PROTEIN 6.3 g/dL (6.4-8.2)
[2019-04-14] MEDS ORDERED: ONDANSETRON 2MG/ML, 2ML IVPush PRN (20:30)
[2019-04-14] MEDS ORDERED: BISACODYL 10 MG SUPP PR PRN (21:00)
[2019-04-14] MEDS: HEPARIN 5,000 UNITS/ML, 1ML SQ SCH (21:00)
[2019-04-14] MEDS: NICOTINE 21 MG/24 HR PATCH.TD24 TD SCH (21:00)
[2019-04-14] MEDS ORDERED: LORazepam 2 MG/ML, 1ML IVPush PRN (21:00)
[2019-04-14] MEDS: LACTATED RINGERS 1,000 ML IV SCH (21:00)
[2019-04-14] MEDS ORDERED: NICOTINE 21 MG/24 HR PATCH.TD24 ONE (21:04)
[2019-04-14] MEDS ORDERED: HEPARIN 5,000 UNITS/ML, 1ML ONE (21:04)
--- NOTE | 2019-04-14 21:14 | NUR ---
PT MEDICATED PER MAR AT THIS TIME.
--- NOTE | 2019-04-14 22:10 | NUR ---
REPORT OF PT TO RN ANNIVER. ALL QUSESTIONS ANSWERED. TECH PAGED FOR TRANSPORT OF PT TO FLOOR AT THIS TIME.
[2019-04-14 22:50] VITALS: BP 121/68
[2019-04-14] MEDS: morphine SULFATE 10 MG/ML, 1ML IVPush PRN (23:58)
[2019-04-15 00:56] VITALS: BP 124/77
[2019-04-15] MEDS: LACTATED RINGERS 1,000 ML IV SCH ×5 (02:22→21:02)
[2019-04-15] MEDS: ONDANSETRON 2MG/ML, 2ML IVPush PRN ×2 (03:23→17:49)
[2019-04-15] MEDS: morphine SULFATE 10 MG/ML, 1ML IVPush PRN ×6 (04:52→21:02)
[2019-04-15] MEDS: HEPARIN 5,000 UNITS/ML, 1ML SQ SCH (04:55)
[2019-04-15 05:09] LABS: BASOPHILS # (AUTO) 0.11 x10^3/uL (0-0.1); BASOPHILS % (AUTO) 2 % (0-1); EOSINOPHILS # (AUTO) 0.35 x10^3/uL (0-0.4); EOSINOPHILS % (AUTO) 5 % (1-7); LYMPHOCYTES # (AUTO) 2.47 x10^3/uL (1-3.4); LYMPHOCYTES % (AUTO) 32 % (22-44); MD NO; MEAN CORPUSCULAR HEMOGLOBIN 31.3 pg (27.5-34.5); MEAN CORPUSCULAR HGB CONC 33.5 g/dL (33.2-36.2); MEAN CORPUSCULAR VOLUME 93.6 fL (81-97); MEAN PLATELET VOLUME 6.4 fL (7.4-10.4); MONOCYTES # (AUTO) 0.55 x10^3/uL (0.2-0.8); MONOCYTES % (AUTO) 7 % (2-9); NEUTROPHILS # (AUTO) 4.16 x10^3/uL (1.8-6.8); NEUTROPHILS % (AUTO) 54 % (42-75); PLATELET COUNT 472 x10^3/uL (130-400); RED BLOOD COUNT 3.99 x10^6/uL (4.38-5.82); RED CELL DISTRIBUTION WIDTH 14.4 % (9.4-14.8)
[2019-04-15 05:17] LABS: CALCIUM 8.3 mg/dL (8.5-10.1); CHLORIDE 108 mmol/L (98-107)
[2019-04-15 05:23] LABS: ALANINE AMINOTRANSFERASE 17 U/L (12-78); ALBUMIN 2.7 g/dL (3.4-5.0); ALKALINE PHOSPHATASE 70 U/L (45-117); ANION GAP 10 mmol/L (5-15); BILIRUBIN,TOTAL 0.7 mg/dL (0.2-1.0); TOTAL PROTEIN 5.8 g/dL (6.4-8.2)
[2019-04-15 06:40] VITALS: BP 138/81
[2019-04-15] MEDS ORDERED: PROMETHAZINE 25 MG/ML, 1ML IM PRN (08:30)
[2019-04-15] MEDS ORDERED: MAGNESIUM SULFATE PMX 2GM/50ML 50 ML IV ONE (08:30)
[2019-04-15] MEDS ORDERED: LORazepam 2 MG/ML, 1ML IV PRN ×5 (08:30)
[2019-04-15] MEDS ORDERED: SENNA/DOCUSATE TABLET PO PRN (08:30)
[2019-04-15] MEDS ORDERED: LORazepam 1MG TABLET PO PRN ×4 (08:30)
[2019-04-15] MEDS ORDERED: LORazepam 0.5MG TABLET PO PRN (08:30)
[2019-04-15] MEDS ORDERED: SUCRALFATE 1 GM/10 ML UDC ONE (08:35)
[2019-04-15] MEDS: SUCRALFATE 1 GM/10 ML UDC PO SCH ×3 (08:37→21:01)
[2019-04-15] MEDS: PANTOPRAZOLE 40 MG IV IVPush SCH ×2 (08:38→19:42)
[2019-04-15 12:05] VITALS: BP 116/73
[2019-04-15] MEDS ORDERED: OXYcodone IR 5MG TABLET PO PRN (16:00)
[2019-04-15] MEDS ORDERED: OXYcodone IR 5MG TABLET ONE (16:00)
[2019-04-15] MEDS ORDERED: DIPHENHYDRAMINE 25 MG CAPSULE ONE (16:00)
[2019-04-15] MEDS: DIPHENHYDRAMINE 25 MG CAPSULE PO PRN (16:02)
[2019-04-15 19:20] VITALS: BP 120/71
[2019-04-15] MEDS: NICOTINE 21 MG/24 HR PATCH.TD24 TD SCH (21:02)
[2019-04-16] MEDS: ONDANSETRON 2MG/ML, 2ML IVPush PRN ×2 (00:12→08:17)
[2019-04-16] MEDS: morphine SULFATE 10 MG/ML, 1ML IVPush PRN ×5 (00:12→15:57)
[2019-04-16 02:10] VITALS: BP 132/72
[2019-04-16] MEDS: LACTATED RINGERS 1,000 ML IV SCH (03:46)
[2019-04-16 05:53] LABS: ANION GAP 14 mmol/L (5-15); CALCIUM 8.8 mg/dL (8.5-10.1); CHLORIDE 104 mmol/L (98-107)
[2019-04-16 05:54] LABS: CREATININE 0.73 mg/dL (0.7-1.3)
[2019-04-16 06:16] LABS: BASOPHILS % (AUTO) 1 % (0-1); EOSINOPHILS % (AUTO) 5 % (1-7); LYMPHOCYTES # (AUTO) 2.79 x10^3/uL (1-3.4); LYMPHOCYTES % (AUTO) 30 % (22-44); MD NO; MEAN CORPUSCULAR HEMOGLOBIN 31.5 pg (27.5-34.5); MEAN CORPUSCULAR VOLUME 95.3 fL (81-97); MEAN PLATELET VOLUME 7.5 fL (7.4-10.4); MONOCYTES # (AUTO) 0.75 x10^3/uL (0.2-0.8); MONOCYTES % (AUTO) 8 % (2-9); NEUTROPHILS # (AUTO) 5.29 x10^3/uL (1.8-6.8); NEUTROPHILS % (AUTO) 56 % (42-75); PLATELET COUNT 483 x10^3/uL (130-400); RED CELL DISTRIBUTION WIDTH 14.4 % (9.4-14.8)
[2019-04-16] MEDS: SUCRALFATE 1 GM/10 ML UDC PO SCH ×4 (06:23→20:33)
[2019-04-16 07:10] VITALS: BP 117/68
[2019-04-16] MEDS: PANTOPRAZOLE 40 MG IV IVPush SCH ×2 (08:17→19:49)
[2019-04-16] MEDS: D5%-LACTATED RINGERS 1,000 ML IV SCH ×3 (10:15→23:05)
[2019-04-16 12:10] VITALS: BP 126/77
[2019-04-16] MEDS: THIAMINE 100MG TABLET PO SCH (17:43)
[2019-04-16] MEDS: FOLIC ACID 1 MG TABLET PO SCH (17:43)
[2019-04-16 19:09] VITALS: BP 117/82
[2019-04-16] MEDS: DIPHENHYDRAMINE 25 MG CAPSULE PO PRN (19:12)
[2019-04-16] MEDS: ACETAMINOPHEN 325 MG TABLET PO PRN (19:51)
[2019-04-16] MEDS: NICOTINE 21 MG/24 HR PATCH.TD24 TD SCH (20:33)
[2019-04-16] MEDS: OXYcodone IR 5MG TABLET PO PRN (22:38)
[2019-04-17 01:25] VITALS: BP 115/74
[2019-04-17] MEDS: ONDANSETRON 2MG/ML, 2ML IVPush PRN ×2 (01:34→09:39)
[2019-04-17] MEDS: OXYcodone IR 5MG TABLET PO PRN ×5 (02:28→21:32)
[2019-04-17 05:00] LABS: ALBUMIN 2.6 g/dL (3.4-5.0); ANION GAP 5 mmol/L (5-15); CALCIUM 8.2 mg/dL (8.5-10.1); CHLORIDE 104 mmol/L (98-107)
[2019-04-17 05:03] LABS: ALANINE AMINOTRANSFERASE 15 U/L (12-78); ALKALINE PHOSPHATASE 65 U/L (45-117); BILIRUBIN,TOTAL 0.3 mg/dL (0.2-1.0); CREATININE 0.76 mg/dL (0.7-1.3); TOTAL PROTEIN 5.9 g/dL (6.4-8.2)
[2019-04-17] MEDS: D5%-LACTATED RINGERS 1,000 ML IV SCH ×3 (05:05→19:42)
[2019-04-17] MEDS: ACETAMINOPHEN 325 MG TABLET PO PRN ×3 (05:05→18:10)
[2019-04-17] MEDS: SUCRALFATE 1 GM/10 ML UDC PO SCH ×4 (06:27→19:42)
[2019-04-17 07:02] VITALS: BP 115/71
[2019-04-17] MEDS: THIAMINE 100MG TABLET PO SCH (07:46)
[2019-04-17] MEDS: PANTOPRAZOLE 40 MG IV IVPush SCH ×2 (07:46→19:42)
[2019-04-17] MEDS: FOLIC ACID 1 MG TABLET PO SCH (07:47)
[2019-04-17 12:48] VITALS: BP 128/76
[2019-04-17] MEDS: PANCRELIPASE 24,000 CAPSULE.DR PO SCH ×2 (16:10→21:00)
[2019-04-17] MEDS ORDERED: OMNIPAQUE 350 MG/ML, 100ML BOTTLE ONE (17:24)
[2019-04-17 19:15] VITALS: BP 137/87
[2019-04-17] MEDS: NICOTINE 21 MG/24 HR PATCH.TD24 TD SCH (19:43)
[2019-04-17] MEDS: morphine SULFATE 10 MG/ML, 1ML IVPush PRN (20:05)
[2019-04-17 23:40] VITALS: BP 118/76
[2019-04-18] MEDS: morphine SULFATE 10 MG/ML, 1ML IVPush PRN ×6 (00:40→23:14)
[2019-04-18 01:40] VITALS: BP 134/79
[2019-04-18] MEDS: ONDANSETRON 2MG/ML, 2ML IVPush PRN ×2 (01:51→15:39)
[2019-04-18] MEDS: OXYcodone IR 5MG TABLET PO PRN ×4 (01:51→20:24)
[2019-04-18] MEDS: D5%-LACTATED RINGERS 1,000 ML IV SCH ×4 (01:54→23:15)
[2019-04-18 05:08] LABS: BASOPHILS # (AUTO) 0.04 x10^3/uL (0-0.1); BASOPHILS % (AUTO) 0 % (0-1); EOSINOPHILS % (AUTO) 5 % (1-7); LYMPHOCYTES # (AUTO) 1.94 x10^3/uL (1-3.4); LYMPHOCYTES % (AUTO) 20 % (22-44); MD NO; MEAN CORPUSCULAR HEMOGLOBIN 31.4 pg (27.5-34.5); MEAN CORPUSCULAR HGB CONC 32.9 g/dL (33.2-36.2); MEAN CORPUSCULAR VOLUME 95.4 fL (81-97); MEAN PLATELET VOLUME 7.2 fL (7.4-10.4); MONOCYTES # (AUTO) 0.71 x10^3/uL (0.2-0.8); MONOCYTES % (AUTO) 7 % (2-9); NEUTROPHILS # (AUTO) 6.48 x10^3/uL (1.8-6.8); NEUTROPHILS % (AUTO) 67 % (42-75); PLATELET COUNT 404 x10^3/uL (130-400); RED BLOOD COUNT 4.37 x10^6/uL (4.38-5.82); RED CELL DISTRIBUTION WIDTH 14.2 % (9.4-14.8)
[2019-04-18 05:13] LABS: ALBUMIN 2.8 g/dL (3.4-5.0); ANION GAP 6 mmol/L (5-15); CALCIUM 8.6 mg/dL (8.5-10.1); CHLORIDE 106 mmol/L (98-107)
[2019-04-18 05:17] LABS: ALANINE AMINOTRANSFERASE 13 U/L (12-78); ALKALINE PHOSPHATASE 74 U/L (45-117); BILIRUBIN,TOTAL 0.4 mg/dL (0.2-1.0); CHOL/HDL RATIO 2.6; CHOLESTEROL, TOTAL 120 mg/dL (140-239); CREATININE 0.84 mg/dL (0.7-1.3); HDL CHOL % 38 % (26-37); HDL CHOLESTEROL (DIRECT) 46 mg/dL (40-60); LDL CHOLESTEROL,CALCULATED 55 mg/dL (54-169); LDL/HDL RATIO 1.2 (0.5-3.0); TOTAL PROTEIN 6.6 g/dL (6.4-8.2); TRIGLYCERIDES 97 mg/dL (50-200); VLDL CHOLESTEROL 19 mg/dL (0-25)
[2019-04-18] MEDS: FOLIC ACID 1 MG TABLET PO SCH (07:45)
[2019-04-18] MEDS: THIAMINE 100MG TABLET PO SCH (07:45)
[2019-04-18] MEDS: PANTOPRAZOLE 40 MG IV IVPush SCH ×2 (07:45→20:00)
[2019-04-18] MEDS: SUCRALFATE 1 GM/10 ML UDC PO SCH ×4 (07:45→20:17)
[2019-04-18 09:11] VITALS: BP 119/76
[2019-04-18] MEDS: PANCRELIPASE 24,000 CAPSULE.DR PO SCH ×3 (13:14→20:16)
[2019-04-18 14:46] VITALS: BP 117/72
[2019-04-18 19:06] VITALS: BP 126/75
[2019-04-18] MEDS: NICOTINE 21 MG/24 HR PATCH.TD24 TD SCH (20:17)
[2019-04-19 00:23] VITALS: BP 120/65
[2019-04-19] MEDS: ACETAMINOPHEN 325 MG TABLET PO PRN (00:51)
[2019-04-19] MEDS: D5%-LACTATED RINGERS 1,000 ML IV SCH ×3 (05:46→19:09)
[2019-04-19 07:07] VITALS: BP 128/78
[2019-04-19] MEDS: PANTOPRAZOLE 40 MG IV IVPush SCH ×2 (07:19→20:47)
[2019-04-19] MEDS: SUCRALFATE 1 GM/10 ML UDC PO SCH ×4 (07:19→20:48)
[2019-04-19] MEDS: morphine SULFATE 10 MG/ML, 1ML IVPush PRN ×2 (07:30→13:44)
[2019-04-19] MEDS: PANCRELIPASE 24,000 CAPSULE.DR PO SCH ×3 (09:27→20:48)
[2019-04-19] MEDS: FOLIC ACID 1 MG TABLET PO SCH (09:27)
[2019-04-19] MEDS: OXYcodone IR 5MG TABLET PO PRN ×4 (09:27→23:51)
[2019-04-19] MEDS: THIAMINE 100MG TABLET PO SCH (09:28)
[2019-04-19] MEDS: ONDANSETRON 2MG/ML, 2ML IVPush PRN (12:11)
[2019-04-19 13:00] VITALS: BP 123/8
[2019-04-19 19:13] VITALS: BP 123/75
[2019-04-19] MEDS: NICOTINE 21 MG/24 HR PATCH.TD24 TD SCH (20:59)
[2019-04-20 00:06] VITALS: BP 128/78
[2019-04-20] MEDS: ACETAMINOPHEN 325 MG TABLET PO PRN ×3 (00:55→20:09)
[2019-04-20] MEDS: D5%-LACTATED RINGERS 1,000 ML IV SCH ×4 (01:51→23:44)
[2019-04-20] MEDS: OXYcodone IR 5MG TABLET PO PRN ×3 (06:00→18:58)
[2019-04-20 07:27] VITALS: BP 125/83
[2019-04-20] MEDS: PANTOPRAZOLE 40 MG IV IVPush SCH (07:33)
[2019-04-20] MEDS: FOLIC ACID 1 MG TABLET PO SCH (08:15)
[2019-04-20] MEDS: SUCRALFATE 1 GM/10 ML UDC PO SCH ×4 (08:15→20:08)
[2019-04-20] MEDS: THIAMINE 100MG TABLET PO SCH (08:15)
[2019-04-20] MEDS: PANCRELIPASE 24,000 CAPSULE.DR PO SCH ×3 (08:15→20:08)
[2019-04-20] MEDS: ONDANSETRON 2MG/ML, 2ML IVPush PRN (09:25)
[2019-04-20] MEDS: morphine SULFATE 10 MG/ML, 1ML IVPush PRN ×2 (09:25→23:53)
[2019-04-20 12:17] VITALS: BP 116/74
[2019-04-20] MEDS: PANTOPROZOLE 40MG TABLET PO SCH (16:32)
[2019-04-20 19:00] VITALS: BP 127/79
[2019-04-20] MEDS: NICOTINE 21 MG/24 HR PATCH.TD24 TD SCH (20:09)
[2019-04-21 00:15] VITALS: BP 169/93
[2019-04-21 00:21] VITALS: BP 132/74
[2019-04-21] MEDS: OXYcodone IR 5MG TABLET PO PRN ×3 (04:53→22:54)
[2019-04-21] MEDS: PANTOPROZOLE 40MG TABLET PO SCH ×2 (05:34→16:24)
[2019-04-21] MEDS: D5%-LACTATED RINGERS 1,000 ML IV SCH (05:34)
[2019-04-21 06:28] LABS: BASOPHILS # (AUTO) 0.08 x10^3/uL (0-0.1); BASOPHILS % (AUTO) 1 % (0-1); EOSINOPHILS # (AUTO) 0.68 x10^3/uL (0-0.4); EOSINOPHILS % (AUTO) 8 % (1-7); LYMPHOCYTES # (AUTO) 2.75 x10^3/uL (1-3.4); LYMPHOCYTES % (AUTO) 34 % (22-44); MD NO; MEAN CORPUSCULAR HEMOGLOBIN 31.1 pg (27.5-34.5); MEAN CORPUSCULAR HGB CONC 32.8 g/dL (33.2-36.2); MEAN CORPUSCULAR VOLUME 94.8 fL (81-97); MEAN PLATELET VOLUME 7.4 fL (7.4-10.4); MONOCYTES % (AUTO) 10 % (2-9); NEUTROPHILS # (AUTO) 3.91 x10^3/uL (1.8-6.8); NEUTROPHILS % (AUTO) 48 % (42-75); PLATELET COUNT 337 x10^3/uL (130-400); RED BLOOD COUNT 3.98 x10^6/uL (4.38-5.82); RED CELL DISTRIBUTION WIDTH 14.3 % (9.4-14.8)
[2019-04-21 06:36] LABS: ALANINE AMINOTRANSFERASE 10 U/L (12-78); ALBUMIN 2.5 g/dL (3.4-5.0); ANION GAP 6 mmol/L (5-15); CALCIUM 8.2 mg/dL (8.5-10.1); CHLORIDE 110 mmol/L (98-107); CREATININE 0.74 mg/dL (0.7-1.3)
[2019-04-21 06:41] LABS: ALKALINE PHOSPHATASE 64 U/L (45-117); BILIRUBIN,TOTAL 0.2 mg/dL (0.2-1.0); TOTAL PROTEIN 5.8 g/dL (6.4-8.2)
[2019-04-21 07:09] VITALS: BP 138/83
[2019-04-21] MEDS: THIAMINE 100MG TABLET PO SCH (07:54)
[2019-04-21] MEDS: FOLIC ACID 1 MG TABLET PO SCH (07:54)
[2019-04-21] MEDS: PANCRELIPASE 24,000 CAPSULE.DR PO SCH ×3 (07:54→21:00)
[2019-04-21] MEDS: SUCRALFATE 1 GM/10 ML UDC PO SCH ×4 (07:54→22:54)
[2019-04-21] MEDS: ACETAMINOPHEN 325 MG TABLET PO PRN (11:54)
[2019-04-21] MEDS: NICOTINE 21 MG/24 HR PATCH.TD24 TD SCH (12:10)
[2019-04-21 13:21] VITALS: BP 128/86
[2019-04-21] MEDS: morphine SULFATE 10 MG/ML, 1ML IVPush PRN ×3 (14:47→21:15)
[2019-04-21 18:33] VITALS: BP 133/84
[2019-04-21] MEDS: ONDANSETRON 2MG/ML, 2ML IVPush PRN (20:11)
[2019-04-22] MEDS: ACETAMINOPHEN 325 MG TABLET PO PRN ×3 (00:02→14:34)
[2019-04-22 00:07] VITALS: BP 121/75
[2019-04-22] MEDS: OXYcodone IR 5MG TABLET PO PRN ×2 (06:25→12:12)
[2019-04-22] MEDS: PANTOPROZOLE 40MG TABLET PO SCH (06:25)
[2019-04-22 08:02] VITALS: BP 116/73
[2019-04-22] MEDS: THIAMINE 100MG TABLET PO SCH (08:34)
[2019-04-22] MEDS: PANCRELIPASE 24,000 CAPSULE.DR PO SCH (08:34)
[2019-04-22] MEDS: FOLIC ACID 1 MG TABLET PO SCH (08:34)
[2019-04-22] MEDS: SUCRALFATE 1 GM/10 ML UDC PO SCH ×2 (08:34→10:35)
[2019-04-22] MEDS: NICOTINE 21 MG/24 HR PATCH.TD24 TD SCH (10:35)
[2019-04-22] MEDS: morphine SULFATE 10 MG/ML, 1ML IVPush PRN (13:42)
[2019-04-22] MEDS ORDERED: THIA100T67 PO (13:48)
[2019-04-22] MEDS ORDERED: LIPA1CAP61 PO (13:48)
[2019-04-22] MEDS ORDERED: FOLI-17 PO (13:48)
[2019-04-22] MEDS ORDERED: SENN-193 PO (13:48)
[2019-04-22] MEDS ORDERED: PANT40TA5 PO (13:48)
[2019-04-22 13:51] VITALS: BP 125/82
[2019-04-22] MEDS ORDERED: OXYC5CAP2 PO (15:56)
== END 2019-04-22 16:10 | disposition home or self-care (01) | DRG 391 ==
LOC: ED 19:41 → EDIP 20:25 → 4NE 23:00 → 3N 04-17 23:15 → DCLOUNGE 04-22 15:47
PROVIDERS: ADMIT Internal Medicine; ATTEND Hospitalist
DX: K29.00 Acute gastritis without bleeding (principal); K85.20 Alcohol induced acute pancreatitis without necrosis or infection; K86.0 Alcohol-induced chronic pancreatitis; K29.50 Unspecified chronic gastritis without bleeding; I10 Essential (primary) hypertension; F12.90 Cannabis use, unspecified, uncomplicated; F10.21 Alcohol dependence, in remission; Z72.0 Tobacco use; D64.9 Anemia, unspecified
CPT/HCPCS: 36415; J7121; 74177; 80048; 80053; 80061; 82962; 83690; 83735; 84100; 85025; 93005; G0378; J1644; J2405; Q9967; C9113; J2270; J3475; J7030; J7120; Q0163

== ENCOUNTER 2019-05-25 11:37 | Emergency (ER) | payer MEDICAID ==
[~2019-05-25] VITALS: Ht 175.3 cm; Wt 60.7 kg
[~2019-05-25 11:37] MED LIST changes: +FOLI-17 PO; +LIPA1CAP61 PO; +OXYC5CAP2 PO; +PANT40TA5 PO; +SENN-193 PO; +THIA100T67 PO
--- NOTE | 2019-05-25 12:54 | NUR ---
housekeeping aid: Pt ambulatory to ED room 14 from tony in NAD
--- NOTE | 2019-05-25 13:00 | NUR ---
PT AMBULATED STEADILY TO ROOM FROM [facility], CHANGED INTO GOWN, UPRIGHT ON GURNEY, RESPONDS APPROP TO STAFF, C/O ABD PAIN & AWAITING FOR ERP CONTACT, COMFORT MEASURES PROVIDED, CALL LIGHT WITHIN REACH.
[2019-05-25] MEDS ORDERED: ONDANSETRON 2MG/ML, 2ML ONE (13:17)
[2019-05-25] MEDS ORDERED: MORPHINE SULFATE 4 MG/ML, 1ML ONE ×2 (13:18→14:21)
[2019-05-25] MEDS ORDERED: DICYCLOMINE 10 MG/ML, 2ML ONE (13:18)
[2019-05-25] MEDS ORDERED: FAMOTIDINE 20 MG/2 ML ONE (13:18)
[2019-05-25] MEDS: MORPHINE SULFATE 4 MG/ML, 1ML IVPush PRN ×2 (13:22→14:25)
[2019-05-25 13:24] LABS: BASOPHILS # (AUTO) 0.07 x10^3/uL (0-0.1); BASOPHILS % (AUTO) 1 % (0-1); EOSINOPHILS # (AUTO) 0.24 x10^3/uL (0-0.4); EOSINOPHILS % (AUTO) 2 % (1-7); LYMPHOCYTES # (AUTO) 1.84 x10^3/uL (1-3.4); LYMPHOCYTES % (AUTO) 15 % (22-44); MD NO; MEAN CORPUSCULAR HGB CONC 33.2 g/dL (33.2-36.2); MEAN CORPUSCULAR VOLUME 90.1 fL (81-97); MEAN PLATELET VOLUME 6.4 fL (7.4-10.4); MONOCYTES # (AUTO) 0.57 x10^3/uL (0.2-0.8); MONOCYTES % (AUTO) 5 % (2-9); NEUTROPHILS # (AUTO) 9.34 x10^3/uL (1.8-6.8); NEUTROPHILS % (AUTO) 77 % (42-75); PLATELET COUNT 537 x10^3/uL (130-400); RED BLOOD COUNT 4.74 x10^6/uL (4.38-5.82); RED CELL DISTRIBUTION WIDTH 15.9 % (9.4-14.8)
[2019-05-25] MEDS ORDERED: BLOOD PRESSURE MED (13:30)
[2019-05-25] MEDS ORDERED: ONDANSETRON 2MG/ML, 2ML IVPush ONE (13:30)
[2019-05-25] MEDS ORDERED: FAMOTIDINE 20 MG/2 ML IVPush ONE (13:30)
[2019-05-25] MEDS ORDERED: SODIUM CHLORIDE 0.9% 1,000ML IVBOLUS ONE (13:30)
[2019-05-25] MEDS ORDERED: DICYCLOMINE 10 MG/ML, 2ML IM ONE (13:30)
[2019-05-25 13:37] LABS: ALANINE AMINOTRANSFERASE 13 U/L (12-78); ALBUMIN 3.5 g/dL (3.4-5.0); ANION GAP 9 mmol/L (5-15); CALCIUM 8.9 mg/dL (8.5-10.1); CHLORIDE 103 mmol/L (98-107); CREATININE 0.93 mg/dL (0.7-1.3)
[2019-05-25 13:39] LABS: ALKALINE PHOSPHATASE 89 U/L (45-117); BILIRUBIN,TOTAL 0.5 mg/dL (0.2-1.0); TOTAL PROTEIN 7.3 g/dL (6.4-8.2)
--- NOTE | 2019-05-25 13:56 | NUR ---
PT REMAINS UPRIGHT ON GURNEY, RESPONDS APPROP TO STAFF, C/O DECR ABD PAIN BUT STILL UNCOMFORTABLE, COMFORT MEASURES PROVIDED, CALL LIGHT WITHIN REACH.
[2019-05-25] MEDS ORDERED: DIPHENHYDRAMINE 50 MG/ML, 1ML ONE (14:19)
[2019-05-25] MEDS ORDERED: METOCLOPRAMIDE 5 MG/ML, 2ML ONE (14:19)
[2019-05-25] MEDS ORDERED: DIPHENHYDRAMINE 50 MG/ML, 1ML IVPush ONE (15:00)
[2019-05-25] MEDS ORDERED: METOCLOPRAMIDE 5 MG/ML, 2ML IVPush ONE (15:00)
--- NOTE | 2019-05-25 15:00 | NUR ---
PT UPRIGHT ON GURNEY AWAKE & MORE COMFORTABLE AFTER 2ND DOSE OF PAIN MEDS, RESPONDS APPROP TO STAFF, NAD, COMFORT MEASURES PROVIDED, CALL LIGHT WITHIN REACH.
--- NOTE | 2019-05-25 15:29 | NUR ---
PT GIVEN PO FLUIDS FOR PO CHALLENGE PER ERP REQUEST, PT TOLERATED WELL W/O NV OR INCR ABD PAIN.
[2019-05-25 16:12] VITALS: BP 115/75
--- NOTE | 2019-05-25 16:13 | NUR ---
Patient given discharge instructions and Rx, they have confirmed that they understand the instructions. Patient ambulatory with steady gait.
== END 2019-05-25 16:14 | disposition home or self-care (01) ==
LOC: ED 14:53
DX: R19.7 Diarrhea, unspecified (principal); R11.2 Nausea with vomiting, unspecified; E86.0 Dehydration; R10.13 Epigastric pain
CPT/HCPCS: 36415; 80053; 83690; 85025; 96361; 96372; 96374; 96375; 96376; 99283; J0500; J1200; J2270; J2405; J2765; J3490; J7030

== ENCOUNTER 2019-07-06 00:53 | Emergency (ER) | payer MEDICAID ==
[~2019-07-06] VITALS: Ht 175.3 cm; Wt 60.0 kg
[~2019-07-06 00:53] MED LIST changes: +BLOOD PRESSURE MED
[2019-07-06 00:55] VITALS: BP 127/76
[2019-07-06] MEDS ORDERED: PROMETHAZINE 25 MG/ML, 1ML ONE (01:12)
[2019-07-06] MEDS ORDERED: HYDROmorphone 1 MG/ML, 1ML INJ ONE (01:13)
[2019-07-06] MEDS ORDERED: ONDANSETRON 2MG/ML, 2ML ONE (01:13)
--- NOTE | 2019-07-06 04:49 | NUR ---
SUPERVISOR PATCHING: SEE PAPER CHART FOR DOWNTIME CHARTING.
[2019-07-06 06:48] LABS: MD NO; MEAN CORPUSCULAR HEMOGLOBIN 29.4 pg (27.5-34.5); MEAN CORPUSCULAR VOLUME 89.2 fL (81-97); MEAN PLATELET VOLUME 6.4 fL (7.4-10.4); PLATELET COUNT 487 x10^3/uL (130-400); RED BLOOD COUNT 4.85 x10^6/uL (4.38-5.82); RED CELL DISTRIBUTION WIDTH 16.3 % (9.4-14.8)
[2019-07-06 07:59] LABS: ALANINE AMINOTRANSFERASE 15 U/L (12-78); ALBUMIN 3.4 g/dL (3.4-5.0); ALKALINE PHOSPHATASE 79 U/L (45-117); ANION GAP 11 mmol/L (5-15); BILIRUBIN, DIRECT 0.1 mg/dL (0.1-0.2); BILIRUBIN,INDIRECT 0.4 mg/dL (0.0-2.0); BILIRUBIN,TOTAL 0.5 mg/dL (0.2-1.0); CALCIUM 8.3 mg/dL (8.5-10.1); CHLORIDE 103 mmol/L (98-107); CREATININE 0.71 mg/dL (0.7-1.3); TOTAL PROTEIN 7.3 g/dL (6.4-8.2)
[2019-07-06 11:59] LABS: BASOPHILS # (AUTO) 0.04 x10^3/uL (0-0.1); BASOPHILS % (AUTO) 0 % (0-1); EOSINOPHILS # (AUTO) 0.43 x10^3/uL (0-0.4); EOSINOPHILS % (AUTO) 3 % (1-7); LYMPHOCYTES # (AUTO) 4.34 x10^3/uL (1-3.4); LYMPHOCYTES % (AUTO) 32 % (22-44); MONOCYTES # (AUTO) 0.82 x10^3/uL (0.2-0.8); MONOCYTES % (AUTO) 6 % (2-9); NEUTROPHILS # (AUTO) 8.07 x10^3/uL (1.8-6.8); NEUTROPHILS % (AUTO) 59 % (42-75)
== END 2019-07-06 04:50 ==
LOC: ED 00:56
DX: K29.20 Alcoholic gastritis without bleeding (principal); R10.13 Epigastric pain; F10.20 Alcohol dependence, uncomplicated; Y90.0 Blood alcohol level of less than 20 mg/100 ml; Z72.9 Problem related to lifestyle, unspecified; F17.200 Nicotine dependence, unspecified, uncomplicated
CPT/HCPCS: 36415; 80048; 80076; 80307; 82150; 83690; 85025; 99283

== ENCOUNTER 2019-10-03 07:58 | Inpatient (IN) | payer MEDICAID ==
[~2019-10-03] VITALS: Ht 175.3 cm; Wt 62.0 kg
[2019-10-03] MEDS ORDERED: ONDANSETRON ODT 4 MG ONE (08:35)
[2019-10-03] MEDS ORDERED: FAMOTIDINE 20 MG TABLET ONE (08:35)
--- NOTE | 2019-10-03 08:39 | NUR ---
EPIGASTRIC PAIN RATED SHARP A
--- NOTE | 2019-10-03 08:40 | NUR ---
EPIGASTRIC PAIN DESCRIBED SHARP AT 10/ X2 DAYS (NOTED AFTER 2 DAY ETOH BINGE), N/V/D. HX OF PANCREATITUS LAST DRINK 24 HOURS AGO, NOT A DAILT DRINKER/NO HX OF WITHDRAWAL PROVIDER DEFERRING NEED FOR PIV AT THIS TIME MEDICATED WITH PO MEDS PER PROVIDER LAB AT BEDSIDE
[2019-10-03 08:59] LABS: BASOPHILS # (AUTO) 0.05 x10^3/uL (0-0.1); BASOPHILS % (AUTO) 1 % (0-1); EOSINOPHILS # (AUTO) 0.33 x10^3/uL (0-0.4); EOSINOPHILS % (AUTO) 4 % (1-7); LYMPHOCYTES # (AUTO) 2.75 x10^3/uL (1-3.4); LYMPHOCYTES % (AUTO) 29 % (22-44); MD NO; MEAN CORPUSCULAR HEMOGLOBIN 30.4 pg (27.5-34.5); MEAN CORPUSCULAR HGB CONC 33.9 g/dL (33.2-36.2); MEAN CORPUSCULAR VOLUME 89.7 fL (81-97); MEAN PLATELET VOLUME 6.5 fL (7.4-10.4); MONOCYTES # (AUTO) 0.72 x10^3/uL (0.2-0.8); MONOCYTES % (AUTO) 8 % (2-9); NEUTROPHILS % (AUTO) 59 % (42-75); PLATELET COUNT 329 x10^3/uL (130-400); RED BLOOD COUNT 4.92 x10^6/uL (4.38-5.82); RED CELL DISTRIBUTION WIDTH 15.3 % (9.4-14.8)
[2019-10-03] MEDS ORDERED: ONDANSETRON ODT 4 MG PO ONE (09:00)
[2019-10-03] MEDS ORDERED: FAMOTIDINE 20 MG TABLET PO ONE (09:00)
[2019-10-03 09:16] LABS: ALBUMIN 3.7 g/dL (3.4-5.0); ANION GAP 9 mmol/L (5-15); CALCIUM 8.9 mg/dL (8.5-10.1); CHLORIDE 107 mmol/L (98-107)
[2019-10-03 09:20] LABS: ALANINE AMINOTRANSFERASE 29 U/L (12-78); ALKALINE PHOSPHATASE 117 U/L (45-117); BILIRUBIN,TOTAL 0.6 mg/dL (0.2-1.0); CREATININE 1.23 mg/dL (0.7-1.3); TOTAL PROTEIN 7.4 g/dL (6.4-8.2)
[2019-10-03 09:24] LABS: MICROSCOPIC INDICATED
[2019-10-03] MEDS ORDERED: THIAMINE 100 MG in SODIUM CHLORIDE 0.9% 50 ML IV STA (09:39)
[2019-10-03] MEDS ORDERED: HYDROmorphone 1 MG/ML, 1ML INJ ONE (09:49)
[2019-10-03 10:00] VITALS: BP 138/85
[2019-10-03] MEDS ORDERED: SODIUM CHLORIDE 0.9% 1,000ML IVBOLUS ONE (10:00)
[2019-10-03] MEDS ORDERED: ONDANSETRON 2MG/ML, 2ML IVPush ONE (10:00)
[2019-10-03] MEDS ORDERED: HYDROmorphone 2 MG/ML, 1ML IVPush PRN (10:00)
--- NOTE | 2019-10-03 10:03 | NUR ---
PIV PLACED, THEN MEDIUCATED PER EMAR FOR CONTINUED ABD PAIN AT 10/10
[2019-10-03] MEDS ORDERED: LISI-170 PO (10:25)
--- NOTE | 2019-10-03 10:26 | NUR ---
MED RECC COMPLETED-NOW ONLY TAKES LISINOPRIL AND CREON BUT HASN'T TAKEN IN "AWHILE" 1LNS BOLUS AND THIAMINE INFUSIONS COMPLETE WITH REASSESSMENT REPORTS PAIN IMPROVED TO 4/10 TRANSPORTED TO FLOOR BY EMT AT 1027
[2019-10-03] MEDS ORDERED: hydrALAzine 20 MG/ML, 1ML IVPush PRN (10:30)
[2019-10-03] MEDS ORDERED: ACETAMINOPHEN 325 MG TABLET PO PRN (10:30)
[2019-10-03] MEDS ORDERED: ONDANSETRON 2MG/ML, 2ML IVPush PRN (10:30)
[2019-10-03] MEDS: morphine SULFATE 10 MG/ML, 1ML IVPush PRN ×4 (11:36→20:34)
[2019-10-03] MEDS: THIAMINE 100MG TABLET PO SCH (11:38)
[2019-10-03] MEDS: NICOTINE 14MG/24 HR PATCH.TD24 TD SCH (11:38)
[2019-10-03] MEDS: LACTATED RINGERS 1,000 ML IV SCH (11:42)
[2019-10-03] MEDS: HEPARIN 5,000 UNITS/ML, 1ML SQ SCH ×2 (12:50→20:36)
[2019-10-03 15:31] VITALS: BP 126/80
[2019-10-03 19:42] VITALS: BP 130/80
[2019-10-03] MEDS: OXYcodone IR 5MG TABLET PO PRN (21:11)
[2019-10-04] MEDS: LACTATED RINGERS 1,000 ML IV SCH (00:38)
[2019-10-04 01:37] VITALS: BP 131/79
[2019-10-04] MEDS: OXYcodone IR 5MG TABLET PO PRN ×3 (03:22→17:19)
[2019-10-04] MEDS: HEPARIN 5,000 UNITS/ML, 1ML SQ SCH ×3 (05:00→21:00)
[2019-10-04 05:48] LABS: ANION GAP 9 mmol/L (5-15); BASOPHILS # (AUTO) 0.05 x10^3/uL (0-0.1); BASOPHILS % (AUTO) 0 % (0-1); CALCIUM 8.7 mg/dL (8.5-10.1); CHLORIDE 105 mmol/L (98-107); CREATININE 0.94 mg/dL (0.7-1.3); EOSINOPHILS # (AUTO) 0.34 x10^3/uL (0-0.4); EOSINOPHILS % (AUTO) 3 % (1-7); LYMPHOCYTES # (AUTO) 3.06 x10^3/uL (1-3.4); LYMPHOCYTES % (AUTO) 27 % (22-44); MD NO; MEAN CORPUSCULAR HEMOGLOBIN 30.2 pg (27.5-34.5); MEAN CORPUSCULAR HGB CONC 33.3 g/dL (33.2-36.2); MEAN CORPUSCULAR VOLUME 90.8 fL (81-97); MEAN PLATELET VOLUME 7.3 fL (7.4-10.4); MONOCYTES # (AUTO) 0.96 x10^3/uL (0.2-0.8); MONOCYTES % (AUTO) 8 % (2-9); NEUTROPHILS % (AUTO) 62 % (42-75); PLATELET COUNT 282 x10^3/uL (130-400); RED BLOOD COUNT 4.84 x10^6/uL (4.38-5.82); RED CELL DISTRIBUTION WIDTH 15.8 % (9.4-14.8)
[2019-10-04 06:41] VITALS: BP 128/67
[2019-10-04] MEDS: PANCRELIPASE 24,000 CAPSULE.DR PO SCH ×3 (09:00→21:19)
[2019-10-04] MEDS: NICOTINE 14MG/24 HR PATCH.TD24 TD SCH (09:00)
[2019-10-04] MEDS: THIAMINE 100MG TABLET PO SCH (09:00)
[2019-10-04] MEDS ORDERED: SODIUM CHLORIDE 0.9% 1,000 ML IV SCH (10:30)
[2019-10-04] MEDS ORDERED: THIAMINE 100 MG in SODIUM CHLORIDE 0.9% 50 ML IV SCH (10:30)
[2019-10-04] MEDS ORDERED: morphine SULFATE/PF 0.5 MG/ML, 10ML IV PRN (10:30)
[2019-10-04] MEDS: NICOTINE 21 MG/24 HR PATCH.TD24 TD SCH (11:26)
[2019-10-04] MEDS: PANTOPRAZOLE 40 MG IV IVPush SCH ×2 (11:26→22:38)
[2019-10-04] MEDS: morphine SULFATE 10 MG/ML, 1ML IVPush PRN ×4 (11:29→22:38)
[2019-10-04] MEDS: POTASSIUM CHLORIDE 10 MEQ in D5%-0.45% NACL 1,000 ML IV SCH ×2 (11:40→20:53)
[2019-10-04 12:28] VITALS: BP 116/66
[2019-10-04] MEDS ORDERED: DEXTROSE 50%, 50ML SYRINGE IVPush PRN (12:30)
[2019-10-04] MEDS ORDERED: DEXTROSE 4 GM TAB.CHEW PO PRN (12:30)
[2019-10-04] MEDS ORDERED: HEPARIN 5,000 UNITS/ML, 1ML SQ SCH (12:30)
[2019-10-04] MEDS ORDERED: GLUCAGON 1 MG IM PRN (12:30)
[2019-10-04] MEDS ORDERED: OMNIPAQUE 350 MG/ML, 100ML BOTTLE ONE (13:17)
[2019-10-04] MEDS: LISINOPRIL 20 MG TABLET PO SCH (14:14)
[2019-10-04 18:21] VITALS: BP 120/70
[2019-10-04] MEDS: SODIUM CHLORIDE FLUSH 10ML SYR IVF SCH (21:19)
[2019-10-05 00:46] VITALS: BP 116/69
[2019-10-05] MEDS: morphine SULFATE 10 MG/ML, 1ML IVPush PRN ×2 (02:10→05:24)
[2019-10-05] MEDS: POTASSIUM CHLORIDE 10 MEQ in D5%-0.45% NACL 1,000 ML IV SCH ×2 (03:13→09:33)
[2019-10-05] MEDS: HEPARIN 5,000 UNITS/ML, 1ML SQ SCH ×3 (04:15→20:57)
[2019-10-05 05:45] LABS: BASOPHILS # (AUTO) 0.05 x10^3/uL (0-0.1); BASOPHILS % (AUTO) 1 % (0-1); EOSINOPHILS # (AUTO) 0.24 x10^3/uL (0-0.4); EOSINOPHILS % (AUTO) 3 % (1-7); LYMPHOCYTES # (AUTO) 2.57 x10^3/uL (1-3.4); LYMPHOCYTES % (AUTO) 32 % (22-44); MD NO; MEAN CORPUSCULAR HEMOGLOBIN 30.8 pg (27.5-34.5); MEAN CORPUSCULAR HGB CONC 33.9 g/dL (33.2-36.2); MONOCYTES % (AUTO) 7 % (2-9); NEUTROPHILS # (AUTO) 4.63 x10^3/uL (1.8-6.8); NEUTROPHILS % (AUTO) 57 % (42-75); PLATELET COUNT 307 x10^3/uL (130-400); RED BLOOD COUNT 5.24 x10^6/uL (4.38-5.82); RED CELL DISTRIBUTION WIDTH 15.2 % (9.4-14.8)
[2019-10-05 05:50] LABS: ALBUMIN 3.8 g/dL (3.4-5.0); CALCIUM 8.7 mg/dL (8.5-10.1); CHLORIDE 105 mmol/L (98-107)
[2019-10-05 05:54] LABS: ALANINE AMINOTRANSFERASE 21 U/L (12-78); ALKALINE PHOSPHATASE 118 U/L (45-117); ANION GAP 6 mmol/L (5-15); BILIRUBIN,TOTAL 0.7 mg/dL (0.2-1.0); CREATININE 1.02 mg/dL (0.7-1.3); TOTAL PROTEIN 8.1 g/dL (6.4-8.2)
[2019-10-05] MEDS: OXYcodone IR 5MG TABLET PO PRN ×3 (06:08→21:40)
[2019-10-05 06:38] VITALS: BP 115/75
[2019-10-05] MEDS: PANCRELIPASE 24,000 CAPSULE.DR PO SCH ×3 (09:00→20:59)
[2019-10-05] MEDS: SODIUM CHLORIDE FLUSH 10ML SYR IVF SCH ×2 (09:00→20:57)
[2019-10-05] MEDS: PANTOPRAZOLE 40 MG IV IVPush SCH ×2 (09:32→22:41)
[2019-10-05] MEDS: NICOTINE 21 MG/24 HR PATCH.TD24 TD SCH (09:32)
[2019-10-05] MEDS: THIAMINE 100MG TABLET PO SCH (09:33)
[2019-10-05] MEDS: LISINOPRIL 20 MG TABLET PO SCH (09:33)
[2019-10-05 13:03] VITALS: BP 125/79
[2019-10-05] MEDS: HYDROmorphone 1 MG/ML, 1ML INJ IV PRN ×3 (13:36→22:41)
[2019-10-05 21:13] VITALS: BP 99/63
[2019-10-06] MEDS: morphine SULFATE 10 MG/ML, 1ML IVPush PRN ×2 (00:53→14:49)
[2019-10-06 01:16] VITALS: BP 115/67
[2019-10-06] MEDS: HYDROmorphone 1 MG/ML, 1ML INJ IV PRN ×2 (04:02→08:44)
[2019-10-06] MEDS: HEPARIN 5,000 UNITS/ML, 1ML SQ SCH ×3 (05:00→20:20)
[2019-10-06] MEDS: OXYcodone IR 5MG TABLET PO PRN ×3 (05:46→18:36)
[2019-10-06 07:46] VITALS: BP 112/74
[2019-10-06] MEDS: POTASSIUM CHLORIDE 10 MEQ in D5%-0.45% NACL 1,000 ML IV SCH ×2 (08:00→21:24)
[2019-10-06] MEDS ORDERED: POTASSIUM CHLORIDE 10 MEQ in D5%-0.45% NACL 1,000 ML IV SCH (08:00)
[2019-10-06] MEDS: NICOTINE 21 MG/24 HR PATCH.TD24 TD SCH (08:36)
[2019-10-06] MEDS: PANTOPRAZOLE 40MG TABLET PO SCH (08:37)
[2019-10-06] MEDS: THIAMINE 100MG TABLET PO SCH (08:37)
[2019-10-06] MEDS: SODIUM CHLORIDE FLUSH 10ML SYR IVF SCH ×2 (08:37→21:24)
[2019-10-06] MEDS: LISINOPRIL 10 MG TABLET PO SCH (08:37)
[2019-10-06] MEDS: PANCRELIPASE 24,000 CAPSULE.DR PO SCH ×3 (09:59→23:00)
[2019-10-06 12:42] VITALS: BP 123/66
[2019-10-06 19:53] VITALS: BP 117/74
[2019-10-07 00:03] VITALS: BP 125/82
[2019-10-07] MEDS: OXYcodone IR 5MG TABLET PO PRN ×3 (00:45→16:01)
[2019-10-07] MEDS: HEPARIN 5,000 UNITS/ML, 1ML SQ SCH ×2 (04:50→12:10)
[2019-10-07] MEDS: PANTOPRAZOLE 40MG TABLET PO SCH (06:01)
[2019-10-07 06:42] VITALS: BP 123/70
[2019-10-07] MEDS: PANCRELIPASE 24,000 CAPSULE.DR PO SCH ×2 (08:20→16:00)
[2019-10-07] MEDS: LISINOPRIL 10 MG TABLET PO SCH (08:20)
[2019-10-07] MEDS: THIAMINE 100MG TABLET PO SCH (08:20)
[2019-10-07] MEDS: NICOTINE 21 MG/24 HR PATCH.TD24 TD SCH (08:21)
[2019-10-07] MEDS: SODIUM CHLORIDE FLUSH 10ML SYR IVF SCH (08:21)
[2019-10-07] MEDS ORDERED: morphine SULFATE 10 MG/ML, 1ML IVPush PRN (08:30)
[2019-10-07] MEDS ORDERED: NICOTINE 21 MG/24 HR PATCH.TD24 TD ONE (12:00)
[2019-10-07 13:37] VITALS: BP 111/60
[2019-10-07] MEDS ORDERED: PANT40TA5 PO (15:32)
[2019-10-07] MEDS ORDERED: OXYC-302 PO (16:23)
== END 2019-10-07 16:49 | disposition home or self-care (01) | DRG 439 ==
LOC: ED 08:57 → EDIP 09:36 → 3N 10:13 → DCLOUNGE 10-07 16:18
PROVIDERS: ADMIT Hospitalist; ATTEND Internal Medicine
DX: K85.20 Alcohol induced acute pancreatitis without necrosis or infection (principal); E46 Unspecified protein-calorie malnutrition; Z60.2 Problems related to living alone; K86.0 Alcohol-induced chronic pancreatitis; E16.2 Hypoglycemia, unspecified; E86.0 Dehydration; F10.20 Alcohol dependence, uncomplicated; F17.210 Nicotine dependence, cigarettes, uncomplicated; I10 Essential (primary) hypertension; Y90.9 Presence of alcohol in blood, level not specified; K21.9 Gastro-esophageal reflux disease without esophagitis; K29.50 Unspecified chronic gastritis without bleeding; Z79.899 Other long term (current) drug therapy; Z68.20 Body mass index [BMI] 20.0-20.9, adult
CPT/HCPCS: 36415; 74177; 80048; 80053; 81001; 83690; 85025; 87086; 96365; 96375; 99285; G0378; J1170; J2405; J3411; J3480; Q0162; Q9967; C9113; J2270; J7030; J7120

== ENCOUNTER 2020-01-03 07:08 | Emergency (ER) | payer MEDICAID ==
[~2020-01-03] VITALS: Ht 175.3 cm; Wt 59.8 kg
[~2020-01-03 07:08] MED LIST changes: +LISI-170 PO; +OXYC-302 PO; -PANT20TA3 PO; +PANT20TA4 PO; -PANT40TA5 PO; +PANT40TA6 PO
--- NOTE | 2020-01-03 07:20 | NUR ---
ER PA AT BEDSIDE FOR EVALUATION. PATIENT COMES IN WITH CHIEF C/O UPPER ABD PAIN, 8/10 RIGHT NOW. PATIENT HAS HISTORY OF ETOH, STATES LAST DRINK WAS YESTERDAY, 24 OZ BEER. PATIENT ALSO STATES HIS BOWEL MOVEMENTS HAVE BEEN "OILY." NO APPARENT SIGNS OF DISTRESS, CONNECTED TO VITAL SIGN MACHINE, CALL LIGHT WITHIN REACH.
[2020-01-03] MEDS ORDERED: MAALOX/HYOSCYAMINE/LIDOCAINE 45 ML BTL PO ONE (07:30)
[2020-01-03] MEDS ORDERED: FAMOTIDINE 20 MG TABLET PO ONE (07:30)
--- NOTE | 2020-01-03 07:39 | NUR ---
URINE COLLECTED AND WALKED TO LAB.
[2020-01-03] MEDS ORDERED: FAMOTIDINE 20 MG TABLET ONE (07:43)
[2020-01-03] MEDS ORDERED: ONDANSETRON ODT 4 MG ONE (07:43)
[2020-01-03] MEDS ORDERED: MAALOX/HYOSCYAMINE/LIDOCAINE 45 ML BTL ONE (07:44)
[2020-01-03 07:45] LABS: MICROSCOPIC NOT IND
--- NOTE | 2020-01-03 07:49 | NUR ---
PATIENT MEDICATED PER eMAR, CALL LIGHT WITHIN REACH, NO FURTHER NEEDS AT THIS TIME.
[2020-01-03 07:54] LABS: BASOPHILS # (AUTO) 0.11 x10^3/uL (0-0.1); BASOPHILS % (AUTO) 1 % (0-1); EOSINOPHILS % (AUTO) 3 % (1-7); LYMPHOCYTES # (AUTO) 2.87 x10^3/uL (1-3.4); LYMPHOCYTES % (AUTO) 29 % (22-44); MD NO; MEAN CORPUSCULAR HEMOGLOBIN 31.2 pg (27.5-34.5); MEAN CORPUSCULAR HGB CONC 33.3 g/dL (33.2-36.2); MEAN CORPUSCULAR VOLUME 93.7 fL (81-97); MEAN PLATELET VOLUME 6.3 fL (7.4-10.4); MONOCYTES # (AUTO) 0.67 x10^3/uL (0.2-0.8); MONOCYTES % (AUTO) 7 % (2-9); NEUTROPHILS # (AUTO) 6.12 x10^3/uL (1.8-6.8); NEUTROPHILS % (AUTO) 61 % (42-75); PLATELET COUNT 409 x10^3/uL (130-400); RED BLOOD COUNT 4.46 x10^6/uL (4.38-5.82); RED CELL DISTRIBUTION WIDTH 16.5 % (9.4-14.8)
[2020-01-03 07:59] LABS: ALANINE AMINOTRANSFERASE 18 U/L (12-78); ALBUMIN 3.6 g/dL (3.4-5.0); ANION GAP 7 mmol/L (5-15); CHLORIDE 107 mmol/L (98-107); CREATININE 0.87 mg/dL (0.7-1.3)
[2020-01-03] MEDS ORDERED: ONDANSETRON ODT 4 MG PO ONE (08:00)
[2020-01-03 08:02] LABS: ALKALINE PHOSPHATASE 64 U/L (45-117); BILIRUBIN,TOTAL 0.3 mg/dL (0.2-1.0); TOTAL PROTEIN 6.9 g/dL (6.4-8.2)
[2020-01-03] MEDS ORDERED: HYDROmorphone 1 MG/ML, 1ML INJ IM ONE (08:30)
[2020-01-03] MEDS ORDERED: HYDROmorphone 1 MG/ML, 1ML INJ ONE (08:31)
--- NOTE | 2020-01-03 08:37 | NUR ---
PATIENT STATES ABD PAIN IS AN 8/10, MEDICATED PER eMAR, VITAL SIGNS WITHIN NORMAL LIMITS, CALL LIGHT WITHIN REACH, NO FURTHER NEEDS AT THIS TIME.
[2020-01-03 09:21] VITALS: BP 119/76
--- NOTE | 2020-01-03 09:27 | NUR ---
Patient given discharge instructions and prescriptions and they have confirmed that they understand the instructions, no questions asked. All patient belongings gathered by patient. Patient ambulatory with steady gait to discharge desk.
== END 2020-01-03 09:28 | disposition home or self-care (01) ==
LOC: ED 08:29
DX: K29.20 Alcoholic gastritis without bleeding (principal); F17.210 Nicotine dependence, cigarettes, uncomplicated
CPT/HCPCS: 36415; 80053; 81003; 83690; 85025; 96372; 99284; J1170; Q0162

== ENCOUNTER 2020-01-03 17:04 | Emergency (ER) | payer MEDICAID ==
[~2020-01-03] VITALS: Ht 175.3 cm; Wt 59.6 kg
[2020-01-03 17:11] VITALS: BP 128/76
[2020-01-03] MEDS ORDERED: MAALOX/HYOSCYAMINE/LIDOCAINE 45 ML BTL PO ONE (17:30)
[2020-01-03] MEDS ORDERED: MAALOX/HYOSCYAMINE/LIDOCAINE 45 ML BTL ONE (17:50)
[2020-01-03] MEDS ORDERED: HYDROmorphone 1 MG/ML, 1ML INJ ONE (18:27)
[2020-01-03] MEDS ORDERED: HYDROmorphone 2 MG/ML, 1ML IM ONE (18:30)
== END 2020-01-03 19:28 | disposition home or self-care (01) ==
LOC: ED 19:00
DX: R10.13 Epigastric pain (principal); F17.200 Nicotine dependence, unspecified, uncomplicated
CPT/HCPCS: 36415; 74176; 83690; 96372; 99284; J1170